=== PATIENT | female | born 1995 | race Caucasian/White ===

== ENCOUNTER → 2020-07-23 | Outpatient (REF) | payer OTHER ==
[2020-07-23 16:58] LABS: BASO # 0.1 10^3/uL (0.0-0.2); BASO % 0.7 % (0.0-1.0); EOS # 0.2 10^3/uL (0.0-0.5); EOS % 2.6 % (0.0-3.0); HEMATOCRIT 41.8 % (36.0-47.0); HEMOGLOBIN 13.7 g/dl (12.0-15.5); LYMPH # 2.4 10^3/uL (1.5-5.0); LYMPH % 33.8 % (24.0-44.0); MEAN CORPUSCULAR HEMOGLOBIN 29.1 pg (27.0-33.0); MEAN CORPUSCULAR HGB CONC 32.8 g/dl (32.0-36.5); MEAN CORPUSCULAR VOLUME 88.9 fl (80.0-96.0); MONO # 0.6 10^3/uL (0.0-0.8); MONO % 8.3 % (0.0-5.0); NEUTROPHILS # 3.9 10^3/uL (1.5-8.5); NEUTROPHILS % 54.3 % (36.0-66.0); PLATELET COUNT, AUTOMATED 315 10^3/uL (150-450); WHITE BLOOD COUNT 7.2 10^3/uL (4.0-10.0)
[2020-07-23 17:06] LABS: APPEARANCE, URINE CLEAR (CLEAR); BACTERIA, URINE AUTO NEGATIVE (NEGATIVE); BILIRUBIN, URINE AUTO NEGATIVE (NEGATIVE); BLOOD, URINE BLOOD 2+ (NEGATIVE); COLOR, URINE STRAW (YELLOW); GLUCOSE, URINE (UA) AUTO NEGATIVE (NEGATIVE); KETONE, URINE AUTO TRACE mg/dL (NEGATIVE); LEUKOCYTE ESTERASE, URINE AUTO NEGATIVE (NEGATIVE); MUCUS, URINE SMALL (NEGATIVE); NITRITE, URINE AUTO NEGATIVE (NEGATIVE); PROTEIN, URINE AUTO NEGATIVE (NEGATIVE); RBC, URINE AUTO 1 /HPF (0-3); SQUAMOUS EPITHELIAL CELL UR AU 0 /HPF (0-6); UROBILINOGEN, URINE AUTO 0.2 mg/dL (0.0-2.0); WBC, URINE AUTO 0 /HPF (0-3)
[2020-07-23 17:19] LABS: CREATININE,RANDOM URINE 60.8 MG/DL; TOTAL PROTEIN,RANDOM URINE < 5.0 MG/DL (0.0-12.0)
[2020-07-23 17:28] LABS: C REACTIVE PROTEIN QUANTITATIV < 0.30 MG/DL (0.00-0.30); COMPLEMENT C3 88 MG/DL (90-180); COMPLEMENT C4 27 MG/DL (10-40); CPK CREATINE PHOSPHOKINASE 150 U/L (26-192); IRON (FE) 50 UG/DL (50-170); MAGNESIUM LEVEL 2.2 MG/DL (1.8-2.4); PHOSPHORUS LEVEL 3.5 MG/DL (2.5-4.9); RHEUMATOID FACTOR QUANT < 10.0 IU/ML (<15.0); THYROID STIMULATING HORMONE 0.541 uIU/ML (0.358-3.740)
[2020-07-23 17:30] LABS: TOTAL 25(OH) VITAMIN D 26.4 NG/ML (30.0-100.0); VITAMIN B12 LEVEL 674 PG/ML (247-911)
[2020-07-23 19:31] LABS: ERYTHROCYTE SEDIMENTATION RATE 7 mm/hr (0-20)
[2020-07-25 10:03] LABS: DRVV SCREEN 40.2 SEC
[2020-07-29 21:06] LABS: ANA (HEP2) Positive (.); ANTI CENTROMERE ANTIBODY <0.2 AI (0.0-0.9); ANTI DS-DNA AB Negative (Negative); ANTI SCLERODERMA ANTIBODIES <0.2 AI (0.0-0.9); ANTI SMITH(Sm) AB <20 Units (<20); ANTI-HISTONE ANTIBODIES 0.7 Units (0.0-0.9); ANTI-U1 RNP AB <20 Units (<20); BETA-2 GLYCOPROTEIN I ABY IGA <9 (0-25); BETA-2 GLYCOPROTEIN I ABY IGG <9 (0-20); BETA-2 GLYCOPROTEIN I ABY IGM <9 (0-32); CARDIOLIPIN IGA ANTIBODY <9 APL U/mL (0-11); CARDIOLIPIN IGG ANTIBODY <9 GPL U/mL (0-14); CARDIOLIPIN IGM ANTIBODY 12 MPL U/mL (0-12); COMPLEMENT TOTAL (CH50) > 60 U/mL (>41); CYCLIC CITRULLINATED PEPTIDE 6 units (0-19); SSA SJOGRENS A <0.2 AI (0.0-0.9); SSB SJOGRENS B <0.2 AI (0.0-0.9)
== END ==
LOC: M SFHCRHEU 14:37
PROVIDERS: ATTEND Internal Medicine
DX: R76.8 Other specified abnormal immunological findings in serum (principal); M79.10 Myalgia, unspecified site; M25.40 Effusion, unspecified joint
CPT/HCPCS: 81001; 82306; 82550; 82570; 82607; 83520; 83540; 83735; 84100; 84156; 84443; 85025; 85652; 85730; 86038; 86140; 86146; 86147; 86160; 86162; 86200; 86225; 86235; 86255; 86431; G0463

== ENCOUNTER → 2020-11-21 | Outpatient (REF) | payer OTHER ==
[2020-11-21 18:12] LABS: C REACTIVE PROTEIN QUANTITATIV 1.04 MG/DL (0.00-0.30)
[2020-11-21 20:12] LABS: TOTAL 25(OH) VITAMIN D 45.1 NG/ML (30.0-100.0)
[2020-11-25 14:17] LABS: ANTI DS-DNA AB Negative (Negative); COMPLEMENT TOTAL (CH50) > 60 U/mL (>41)
== END ==
LOC: M SFHCRHEU 12:53
PROVIDERS: ATTEND Internal Medicine
DX: E55.9 Vitamin D deficiency, unspecified (principal); M32.9 Systemic lupus erythematosus, unspecified
CPT/HCPCS: 82306; 85652; 86140; 86160; 86162; 86225; G0463

== ENCOUNTER 2021-03-26 09:58 | Day surgery (SDC) | payer OTHER ==
[~2021-03-26] VITALS: Ht 152.4 cm; Wt 61.2 kg
[~2021-03-26 09:58] MED LIST: FOLI1TAB11 PO; LR 1,000 ML IV ONE; NAPR-837 PO; PLAQ200T4 PO; VALT500T PO
[2021-03-26 10:54] LABS: HEMATOCRIT 38.9 % (36.0-47.0); HEMOGLOBIN 13.4 g/dl (12.0-15.5); MEAN CORPUSCULAR HEMOGLOBIN 30.7 pg (27.0-33.0); MEAN CORPUSCULAR HGB CONC 34.4 g/dl (32.0-36.5); MEAN CORPUSCULAR VOLUME 89.2 fl (80.0-96.0); PLATELET COUNT, AUTOMATED 269 10^3/uL (150-450); RED BLOOD COUNT 4.36 10^6/uL (4.00-5.40)
[2021-03-26] MEDS ORDERED: MIDAZOLAM INJ 2MG/2ML VIAL (J2250 PER 1MG) As Ordered ONE (11:15)
[2021-03-26] MEDS ORDERED: fentaNYL 100 MCG/2 ML INJECTION (J3010) As Ordered ONE (11:16)
[2021-03-26] MEDS ORDERED: propofoL 200 MG/20 ML VIAL As Ordered ONE (11:17)
[2021-03-26] MEDS ORDERED: ROCURONIUM BROMIDE 50 MG/5 ML VIAL As Ordered ONE (11:17)
[2021-03-26] MEDS ORDERED: LIDOCAINE 2% 100MG/5ML SDV (FOR ANES.) As Ordered ONE (11:17)
[2021-03-26 11:27] LABS: BLOOD UREA NITROGEN 12 MG/DL (7-18); CALCIUM LEVEL 9.5 MG/DL (8.5-10.1); CARBON DIOXIDE LEVEL 28 MEQ/L (21-32); CHLORIDE LEVEL 106 MEQ/L (98-107); CREATININE FOR GFR 0.64 MG/DL (0.55-1.30); GLOMERULAR FILTRATION RATE > 60.0 (>60); GLUCOSE, FASTING 83 MG/DL (70-100); HCG, SERUM QUANTITATIVE < 1.0 MIU/ML; POTASSIUM SERUM 4.2 MEQ/L (3.5-5.1); SODIUM LEVEL 137 MEQ/L (136-145)
[2021-03-26] MEDS ORDERED: HYDROmorphone HCL 2 MG/ML 1ML VIAL As Ordered ONE (11:43)
[2021-03-26] MEDS ORDERED: dexameTHASONE 4 MG/ML 1ML VIAL (J1100 PER 1MG) As Ordered ONE (11:44)
[2021-03-26] MEDS ORDERED: KETOROLAC 60MG 2ML VIAL As Ordered ONE (11:44)
[2021-03-26] MEDS ORDERED: ONDANSETRON 4MG/2ML VIAL As Ordered ONE (11:44)
[2021-03-26] MEDS ORDERED: ACETAMINOPHEN 650 MG SUPP As Ordered ONE (12:27)
[2021-03-26] MEDS ORDERED: BUPIVACAINE HCL 0.5% 10ML VIAL As Ordered ONE (12:27)
[2021-03-26] MEDS ORDERED: PHENYLephrine 500MCG 5ML (100MCG/ML) SYRINGE As Ordered ONE (13:08)
[2021-03-26] MEDS ORDERED: SUGAMMADEX SODIUM 500 MG/5 ML VIAL (BRIDION) As Ordered ONE (13:09)
[2021-03-26] MEDS ORDERED: fentaNYL 100 MCG/2 ML INJECTION (J3010) IV PRN (14:20)
[2021-03-26] MEDS ORDERED: ONDANSETRON 4MG/2ML VIAL IV PRN (14:20)
[2021-03-26] MEDS ORDERED: oxyCODONE 5MG TAB PO PRN (14:20)
[2021-03-26] MEDS ORDERED: LR 1,000 ML IV SCH (14:20)
[2021-03-26 16:00] VITALS: BP 101/59
== END 2021-03-26 16:00 | disposition home or self-care (01) ==
LOC: M SDC 09:58
PROVIDERS: ATTEND Obstetrics & Gynecology
DX: Z30.2 Encounter for sterilization (principal); Z30.46 Encounter for surveillance of implantable subdermal contraceptive; M32.9 Systemic lupus erythematosus, unspecified; R51.9 Headache, unspecified; Z79.899 Other long term (current) drug therapy
CPT/HCPCS: 11982; 36415; 58661; 80048; 84702; 85027; 88300; 88302; J1100; J1170; J1885; J2250; J2370; J2405; J3010

== ENCOUNTER → 2021-04-08 | Outpatient (REF) | payer OTHER ==
[~2021-04-08] MED LIST changes: -LR 1,000 ML IV ONE
[2021-04-08 17:51] LABS: BASO % 0.5 % (0.0-1.0); EOS # 0.2 10^3/uL (0.0-0.5); EOS % 2.7 % (0.0-3.0); HEMATOCRIT 41.2 % (36.0-47.0); HEMOGLOBIN 13.7 g/dl (12.0-15.5); LYMPH # 1.7 10^3/uL (1.5-5.0); LYMPH % 24.9 % (24.0-44.0); MEAN CORPUSCULAR HEMOGLOBIN 30.4 pg (27.0-33.0); MEAN CORPUSCULAR HGB CONC 33.3 g/dl (32.0-36.5); MEAN CORPUSCULAR VOLUME 91.4 fl (80.0-96.0); MONO # 0.5 10^3/uL (0.0-0.8); MONO % 7.1 % (2.0-8.0); NEUTROPHILS # 4.3 10^3/uL (1.5-8.5); NEUTROPHILS % 64.5 % (36.0-66.0); PLATELET COUNT, AUTOMATED 326 10^3/uL (150-450); RED BLOOD COUNT 4.51 10^6/uL (4.00-5.40); WHITE BLOOD COUNT 6.7 10^3/uL (4.0-10.0)
[2021-04-08 18:15] LABS: TOTAL PROTEIN,RANDOM URINE 24.6 MG/DL (0.0-12.0)
[2021-04-08 18:16] LABS: ALBUMIN 4.3 GM/DL (3.2-5.2); ALT/SGPT 28 U/L (12-78); BILIRUBIN,DIRECT < 0.1 MG/DL (0.0-0.2); BILIRUBIN,TOTAL 0.5 MG/DL (0.2-1.0); BLOOD UREA NITROGEN 17 MG/DL (7-18); CALCIUM LEVEL 9.9 MG/DL (8.5-10.1); CARBON DIOXIDE LEVEL 30 MEQ/L (21-32); CHLORIDE LEVEL 105 MEQ/L (98-107); COMPLEMENT C3 105 MG/DL (90-180); COMPLEMENT C4 34 MG/DL (10-40); CREATININE FOR GFR 0.59 MG/DL (0.55-1.30); GLOMERULAR FILTRATION RATE > 60.0 (>60); GLUCOSE, FASTING 78 MG/DL (70-100); POTASSIUM SERUM 4.3 MEQ/L (3.5-5.1); SODIUM LEVEL 138 MEQ/L (136-145); TOTAL PROTEIN 7.4 GM/DL (6.4-8.2)
[2021-04-08 18:20] LABS: APPEARANCE, URINE CLEAR (CLEAR); BACTERIA, URINE AUTO NEGATIVE (NEGATIVE); BILIRUBIN, URINE AUTO NEGATIVE (NEGATIVE); BLOOD, URINE BLOOD NEGATIVE (NEGATIVE); COLOR, URINE YELLOW (YELLOW); GLUCOSE, URINE (UA) AUTO NEGATIVE (NEGATIVE); KETONE, URINE AUTO NEGATIVE (NEGATIVE); LEUKOCYTE ESTERASE, URINE AUTO NEGATIVE (NEGATIVE); MUCUS, URINE SMALL (NEGATIVE); NITRITE, URINE AUTO NEGATIVE (NEGATIVE); PROTEIN, URINE AUTO NEGATIVE (NEGATIVE); RBC, URINE AUTO 0 /HPF (0-3); SPECIFIC GRAVITY URINE AUTO 1.023 (1.002-1.035); SQUAMOUS EPITHELIAL CELL UR AU 1 /HPF (0-6); WBC, URINE AUTO 1 /HPF (0-3)
[2021-04-08 19:04] LABS: ERYTHROCYTE SEDIMENTATION RATE 10 mm/hr (0-20)
[2021-04-11 12:08] LABS: ANTI DS-DNA AB Negative (Negative); COMPLEMENT TOTAL (CH50) > 60 U/mL (>41)
== END ==
LOC: M SFHCRHEU 12:20
PROVIDERS: ATTEND Internal Medicine
DX: M32.9 Systemic lupus erythematosus, unspecified (principal)
CPT/HCPCS: 80048; 80076; 81001; 82570; 84156; 85025; 85652; 86140; 86160; 86162; 86225; G0463

== ENCOUNTER 2021-04-09 11:10 | Emergency (ER) | payer OTHER ==
[~2021-04-09] VITALS: Ht 152.4 cm; Wt 62.1 kg
--- OUTSIDE RECORDS SUMMARY | 2021-04-09 11:17 | CCD ---
Author Author [facility] Organization [facility] Address Unknown Phone Unavailable Care Team Providers Care Wardrobe Coordinator Name Role Phone Antoni MARTINEZ MD Unavailable Unavailable Antoni MARTINEZ MD Unavailable Unavailable Antoni MARTINEZ MD Unavailable Unavailable Antoni MARTINEZ MD Unavailable Unavailable Antoni MARTINEZ MD Unavailable Unavailable Antoni MARTINEZ MD Unavailable Unavailable Antoni MARTINEZ MD Unavailable Unavailable Antoni MARTINEZ MD Unavailable Unavailable Antoni MARTINEZ MD Unavailable Unavailable Antoni MARTINEZ MD Unavailable Unavailable Antoni MARTINEZ MD Unavailable Unavailable Antoni MARTINEZ MD Unavailable Unavailable Antoin MARTINEZ MD Unavailable Unavailable Antoni MARTINEZ MD Unavailable Unavailable Antoni MARTINEZ MD Unavailable Unavailable Antoni MARTINEZ MD Unavailable Unavailable Antoni MARTINEZ MD Unavailable Unavailable Antoni MARTINEZ MD Unavailable Unavailable Antoni MARTINEZ MD Unavailable Unavailable Antoni MARTINEZ MD Unavailable Unavailable Antoni MARTINEZ MD Unavailable Unavailable Antoni MARTINEZ MD Unavailable Unavailable Antoni MARTINEZ MD Unavailable Unavailable Antoni MARTINEZ MD Unavailable Unavailable Kizzy Saab Phyl REJECT OPENER AND FILLER-BC Unavailable Unavailable Kizzy Saab Phyl REJECT OPENER AND FILLER-BC Unavailable Unavailable Saab, A Phyl REJECT OPENER AND FILLER-BC Unavailable Unavailable Saab, A Phyl REJECT OPENER AND FILLER-BC Unavailable Unavailable Saab, A Phyl REJECT OPENER AND FILLER-BC Unavailable Unavailable Saab, A Phyl REJECT OPENER AND FILLER-BC Unavailable Unavailable Saab, A Phyl REJECT OPENER AND FILLER-BC Unavailable Unavailable Saab, A Phyl REJECT OPENER AND FILLER-BC Unavailable Unavailable Saab, A Phyl REJECT OPENER AND FILLER-BC Unavailable Unavailable Saab, A Phyl REJECT OPENER AND FILLER-BC Unavailable Unavailable Saab, A Phyl REJECT OPENER AND FILLER-BC Unavailable Unavailable Saab, A Phyl REJECT OPENER AND FILLER-BC Unavailable Unavailable Saab, A Phyl REJECT OPENER AND FILLER-BC Unavailable Unavailable Saab, A Phyl REJECT OPENER AND FILLER-BC Unavailable Unavailable Saab, A Phyl REJECT OPENER AND FILLER-BC Unavailable Unavailable Saab, A Phyl REJECT OPENER AND FILLER-BC Unavailable Unavailable Saab, A Phyl REJECT OPENER AND FILLER-BC Unavailable Unavailable Saab, A Phyl REJECT OPENER AND FILLER-BC Unavailable Unavailable Saab, A Phyl REJECT OPENER AND FILLER-BC Unavailable Unavailable Saab, A Phyl REJECT OPENER AND FILLER-BC Unavailable Unavailable Saab, A Phyl REJECT OPENER AND FILLER-BC Unavailable Unavailable Saab, A Phyl REJECT OPENER AND FILLER-BC Unavailable Unavailable Saab, A Phyl REJECT OPENER AND FILLER-BC Unavailable Unavailable Saab, A Phyl REJECT OPENER AND FILLER-BC Unavailable Unavailable Saab, A Phyl REJECT OPENER AND FILLER-BC Unavailable Unavailable Saab, A Phyl REJECT OPENER AND FILLER-BC Unavailable Unavailable Saab, A Phyl REJECT OPENER AND FILLER-BC Unavailable Unavailable Saab, A Phyl REJECT OPENER AND FILLER-BC Unavailable Unavailable Saab, A Phyl REJECT OPENER AND FILLER-BC Unavailable Unavailable Saab, A Phyl REJECT OPENER AND FILLER-BC Unavailable Unavailable Saab, A Phyl REJECT OPENER AND FILLER-BC Unavailable Unavailable Saab, A Phyl REJECT OPENER AND FILLER-BC Unavailable Unavailable [facility] Unavailable Unavailable Mosher, M Christopher PA-C Unavailable Unavailable Mosher, M Christopher PA-C Unavailable Unavailable Mosher, M Christopher PA-C Unavailable Unavailable Mosher, M Christopher PA-C Unavailable Unavailable Mosher, M Christopher PA-C Unavailable Unavailable Mosher, M Christopher PA-C Unavailable Unavailable Mosher, M Christopher PA-C Unavailable Unavailable Mosher, M Christopher PA-C Unavailable Unavailable Mosher, M Christopher PA-C Unavailable Unavailable Mosher, M Christopher PA-C Unavailable Unavailable Mosher, M Christopher PA-C Unavailable Unavailable Mosher, M Christopher PA-C Unavailable Unavailable Mosher, M Christopher PA-C Unavailable Unavailable Mosher, M Christopher PA-C Unavailable Unavailable Mosher, M Christopher PA-C Unavailable Unavailable Mosher, M Christopher PA-C Unavailable Unavailable Mosher, M Christopher PA-C Unavailable Unavailable Mosher, M Christopher PA-C Unavailable Unavailable Mosher, M Christopher PA-C Unavailable Unavailable Mosher, M Christopher PA-C Unavailable Unavailable Mosher, M Christopher PA-C Unavailable Unavailable Mosher, M Christopher PA-C Unavailable Unavailable Mosher, M Christopher PA-C Unavailable Unavailable Mosher, M Christopher PA-C Unavailable Unavailable Mosher, M Christopher PA-C Unavailable Unavailable Mosher, M Christopher PA-C Unavailable Unavailable Quinn, L Savita REJECT OPENER AND FILLER Unavailable Unavailable Quinn, L Savita REJECT OPENER AND FILLER Unavailable Unavailable Quinn, L Savita REJECT OPENER AND FILLER Unavailable Unavailable Quinn, L Savita REJECT OPENER AND FILLER Unavailable Unavailable Quinn, L Savita REJECT OPENER AND FILLER Unavailable Unavailable Uqinn, L Savita REJECT OPENER AND FILLER Unavailable Unavailable Quinn, L Savita REJECT OPENER AND FILLER Unavailable Unavailable Quinn, L Savita REJECT OPENER AND FILLER Unavailable Unavailable Quinn, L Savita REJECT OPENER AND FILLER Unavailable Unavailable Quinn, L Savita REJECT OPENER AND FILLER Unavailable Unavailable Quinn, L Savita REJECT OPENER AND FILLER Unavailable Unavailable Quinn, L Savita REJECT OPENER AND FILLER Unavailable Unavailable Quinn, L Savita REJECT OPENER AND FILLER Unavailable Unavailable Quinn, L Savita REJECT OPENER AND FILLER Unavailable Unavailable Quinn, L Savita REJECT OPENER AND FILLER Unavailable Unavailable Quinn, L Savita REJECT OPENER AND FILLER Unavailable Unavailable Quinn, L Savita REJECT OPENER AND FILLER Unavailable Unavailable Quinn, L Svaita REJECT OPENER AND FILLER Unavailable Unavailable Quinn, L Savita REJECT OPENER AND FILLER Unavailable Unavailable Quinn, L Savita REJECT OPENER AND FILLER Unavailable Unavailable Quinn, L Savita REJECT OPENER AND FILLER Unavailable Unavailable Quinn, L Savita REJECT OPENER AND FILLER Unavailable Unavailable Quinn, L Savita REJECT OPENER AND FILLER Unavailable Unavailable Quinn, L Savita REJECT OPENER AND FILLER Unavailable Unavailable Quinn, L Savita REJECT OPENER AND FILLER Unavailable Unavailable Quinn, L Savita REJECT OPENER AND FILLER Unavailable Unavailable Quinn, L Savita REJECT OPENER AND FILLER Unavailable Unavailable Quinn, L Savita REJECT OPENER AND FILLER Unavailable Unavailable Quinn, L Savita REJECT OPENER AND FILLER Unavailable Unavailable Quinn, L Savita REJECT OPENER AND FILLER Unavailable Unavailable Quinn, L Savita REJECT OPENER AND FILLER Unavailable Unavailable Quinn, L Savita REJECT OPENER AND FILLER Unavailable Unavailable Quinn, L Savita REJECT OPENER AND FILLER Unavailable Unavailable Quinn, L Savita REJECT OPENER AND FILLER Unavailable Unavailable Quinn, L Savita REJECT OPENER AND FILLER Unavailable Unavailable Quinn, L Savita REJECT OPENER AND FILLER Unavailable Unavailable Quinn, L Savita REJECT OPENER AND FILLER Unavailable Unavailable Quinn, L Savita REJECT OPENER AND FILLER Unavailable Unavailable Quinn, L Savita REJECT OPENER AND FILLER Unavailable Unavailable Quinn, L Savita REJECT OPENER AND FILLER Unavailable Unavailable Quinn, L Savita REJECT OPENER AND FILLER Unavailable Unavailable Quinn, L Savita REJECT OPENER AND FILLER Unavailable Unavailable Quinn, L Savita REJECT OPENER AND FILLER Unavailable Unavailable Quinn, L Savita REJECT OPENER AND FILLER Unavailable Unavailable Quinn, L Savita REJECT OPENER AND FILLER Unavailable Unavailable Re-disclosure Warning The records that you are about to access may contain information from federally-assisted alcohol or drug abuse programs. If such information is present, then the following federally mandated warning applies: This information has been disclosed to you from records protected by federal confidentiality rules (42 CFR part 2). The federal rules prohibit you from making any further disclosure of this information unless further disclosure is expressly permitted by the written consent of the person to whom it pertains or as otherwise permitted by 42 CFR part 2. A general authorization for the release of medical or other information is NOT sufficient for this purpose. The Federal rules restrict any use of the information to criminally investigate or prosecute any alcohol or drug abuse patient.The records that you are about to access may contain highly sensitive health information, the redisclosure of which is protected by Article 27-F of the [facility] Public Health law. If you continue you may have access to information: Regarding HIV / AIDS; Provided by facilities licensed or operated by the [facility] Office of Mental Health; or Provided by the [facility] Office for People With Developmental Disabilities. If such information is present, then the following [facility] mandated warning applies: This information has been disclosed to you from confidential records which are protected by state law. State law prohibits you from making any further disclosure of this information without the specific written consent of the person to whom it pertains, or as otherwise permitted by law. Any unauthorized further disclosure in violation of state law may result in a fine or half-way sentence or both. A general authorization for the release of medical or other information is NOT sufficient authorization for further disc losure. Encounters Encounter Providers Location Date Indications Data Source(s ) [place] [address] [facility] [facility] [address] 03/21/2021 12:00:00 AM EDT eCW1 ([facility]) [place] [address] [facility] [facility] [address] 03/11/2021 12:00:00 AM EDT eCW1 ([facility]) Outpatient 03/06/2021 04:08:40 PM EDT - 021 04:42:20 PM EDT [facility] ([facility]) [place] [address] [facility] [facility] [facility] [address] 02/10/2021 12:00:00 AM EDT eCW1 [facility]) [place] [address] [facility] [address] 02/10/2021 12:00:00 AM EDT eCW1 ([facility]) [place]patient [address] [facility] [facility] [facility] [address] 11/21/2020 12:00:00 AM EDT [facility]CW1 [facility] Outpatient Attender: Chuy Mosher PA-C 11/18/2020 02:11:59 PM EDT - 11/18/2020 03:35:22 PM EDT [facility] ([facility]) Outpatient Attender: Duarte Saab [facility] Main Office 0 11/12/2020 10:45:00 AM EDT [facility]ENT ([facility]) [place] [address] [facility] [facility] [address] 11/12/2020 12:00:00 AM EDT [facility]CW1 [facility]) Outpatient Attender: Svaita WESTBROOKonsultant: [facility] 11/05/2020 10:03:00 AM EDT - 11/05/2020 11:03:[address] [facility] Outpatient Attender: RENAE MARTINEZ MD 10/11 03:42:42 PM EDT - 10/11/2020 04:59:40 PM EDT [facility] ([facility] ) [place] [address] [facility] [facility] [address] 09/26/2020 12:00:00 AM EDT eCW1 ([facility] [place] [address] [facility] [facility] [address] 09/21/2020 12:00:00 AM EDT eCW1 ([facility]) [place] [address] [facility] [address] 09/20/2020 12:00:00 AM EDT eCW1 ([facility]) [place] [address] [facility] [facility] [address] 08/25/2020 12:00:00 AM EST eCW1 ([facility]) Out[place] [address] [facility] [facility] [address] 08/19/2020 12:00:00 AM EST eCW1 ([facility]) [place] [address] [facility] [facility] [address] 08/01/2020 12:00:00 AM EST eCW1 ([facility]) [place] [address] [facility] [facility] [address] 07/27/2020 12:00:00 AM EST eCW1 ([facility]) [place] [address] [facility] [facility] [facility] [address] 07/23/2020 12:00:00 AM EST eCW1 ([facility]) Medications Medication Brand Name Start Date Product Form Dose Route Admi nistrative Instructions Pharmacy Instructions Status Indications Reaction Description Data Source(s) Naproxen 500 MG Oral Tablet Naproxen 500 MG 11/21/2020 12:00:00 AM EDT 1.0 {tablet_with_food} active Naproxen 500 MG eCW1 ([facility]) Naproxen 500 MG Oral Tablet Naproxen 500 MG 11/21/2020 12:00:00 AM EDT 1.0 {tablet_with_food} active Naproxen 500 MG eCW1 ([facility]) Naproxen 500 MG Oral Tablet Naproxen 500 MG 11/21/2020 12:00:00 AM EDT 1.0 {tablet_with_food} active Naproxen 500 MG eCW1 ([facility]) Naproxen 500 MG Oral Tablet Naproxen 500 MG 11/21/2020 12:00:00 AM EDT 1.0 {tablet_with_food} active Naproxen 500 MG eCW1 ([facility]) Naproxen 500 MG Oral Tablet Naproxen 500 MG 11/21/2020 12:00:00 AM EDT 1.0 {tablet_with_food} active Naproxen 500 MG eCW1 ([facility]) Hydroxychloroquine Sulfate 200 MG Oral Tablet [Plaquen il] Plaquenil 200 MG Plaquenil 200 MG 09/21/2020 12:00:00 AM EDT 1.5 {tablets} active Plaquenil 200 MG eCW1 ([facility]) Hydroxychloroquine Sulfate 200 MG Oral Tablet [Plaquen il] Plaquenil 200 MG Plaquenil 200 MG 09/21/2020 12:00:00 AM EDT 1.5 {tablets} active Plaquenil 200 MG eCW1 ([facility]) Hydroxychloroquine Sulfate 200 MG Oral Tablet [Plaquen il] Plaquenil 200 MG Plaquenil 200 MG 09/21/2020 12:00:00 AM EDT 1.5 {tablets} active Plaquenil 200 MG eCW1 ([facility]) Hydroxychloroquine Sulfate 200 MG Oral Tablet [Plaquen il] Plaquenil 200 MG Plaquenil 200 MG 09/21/2020 12:00:00 AM EDT a ctive Plaquenil 200 MG eCW1 ([facility]) Hydroxychloroquine Sulfate 200 MG Oral Tablet [Plaquen il] Plaquenil 200 MG Plaquenil 200 MG 09/21/2020 12:00:00 AM EDT a ctive Plaquenil 200 MG eCW1 ([facility]) Hydroxychloroquine Sulfate 200 MG Oral Tablet [Plaquen il] Plaquenil 200 MG Plaquenil 200 MG 09/21/2020 12:00:00 AM EDT a ctive Plaquenil 200 MG eCW1 ([facility]) Hydroxychloroquine Sulfate 200 MG Oral Tablet [Plaquen il] Plaquenil 200 MG Plaquenil 200 MG 09/21/2020 12:00:00 AM EDT 1.5 {tablets} active Plaquenil 200 MG eCW1 ([facility]) Hydroxychloroquine Sulfate 200 MG Oral Tablet [Plaquen il] Plaquenil 200 MG Plaquenil 200 MG 09/21/2020 12:00:00 AM EDT 1.5 {tablets} active Plaquenil 200 MG eCW1 ([facility]) Hydroxychloroquine Sulfate 200 MG Oral Tablet [Plaquen il] Plaquenil 200 MG Plaquenil 200 MG 09/21/2020 12:00:00 AM EDT a ctive Plaquenil 200 MG eCW1 ([facility]) D3 Vitamin 1999 UNK 08/19/2020 12:00:00 AM EST 1.0 {tablet} active D3 Vitamin 1999 eCW1 ([facility]) Folic Acid 1 MG Oral Tablet Folic Acid 1 MG 08/19/2020 12:00:00 AM EST 1.0 {tablet} active Folic Acid 1 MG eCW1 ([facility]) Folic Acid 1 MG Oral Tablet Folic Acid 1 MG 08/19/2020 12:00:00 AM EST 1.0 {tablet} active Folic Acid 1 MG eCW1 ([facility]) D3 Vitamin 1999 UNK 08/19/2020 12:00:00 AM EST 1.0 {tablet} active D3 Vitamin 1999 eCW1 ([facility]) Folic Acid 1 MG Oral Tablet Folic Acid 1 MG 08/19/2020 12:00:00 AM EST 1.0 {tablet} active Folic Acid 1 MG eCW1 ([facility]) meloxicam 7.5 MG Oral Tablet Meloxicam 7.5 MG Meloxicam 7.5 MG 08/19/2020 12:00:00 AM EST 1.0 {tablet} active Me loxicam 7.5 MG eCW1 ([facility]) Folic Acid 1 MG Oral Tablet Folic Acid 1 MG 08/19/2020 12:00:00 AM EST 1.0 {tablet} active Folic Acid 1 MG eCW1 ([facility]) meloxicam 7.5 MG Oral Tablet Meloxicam 7.5 MG Meloxicam 7.5 MG 08/19/2020 12:00:00 AM EST 1.0 {tablet} active Me loxicam 7.5 MG eCW1 ([facility]) meloxicam 7.5 MG Oral Tablet Meloxicam 7.5 MG Meloxicam 7.5 MG 08/19/2020 12:00:00 AM EST 1.0 {tablet} active Me loxicam 7.5 MG eCW1 ([facility]) meloxicam 7.5 MG Oral Tablet Meloxicam 7.5 MG Meloxicam 7.5 MG 08/19/2020 12:00:00 AM EST 1.0 {tablet} active Me loxicam 7.5 MG eCW1 ([facility]) Folic Acid 1 MG Oral Tablet Folic Acid 1 MG 08/19/2020 12:00:00 AM EST 1.0 {tablet} active Folic Acid 1 MG eCW1 ([facility]) D3 Vitamin 1999 UNK 08/19/2020 12:00:00 AM EST 1.0 {tablet} active D3 Vitamin 1999 eCW1 ([facility]) D3 Vitamin 1999 UNK 08/19/2020 12:00:00 AM EST 1.0 {tablet} active D3 Vitamin 1999 eCW1 ([facility]) meloxicam 7.5 MG Oral Tablet Meloxicam 7.5 MG Meloxicam 7.5 MG 08/19/2020 12:00:00 AM EST 1.0 {tablet} active Me loxicam 7.5 MG eCW1 ([facility]) meloxicam 7.5 MG Oral Tablet Meloxicam 7.5 MG Meloxicam 7.5 MG 08/19/2020 12:00:00 AM EST 1.0 {tablet} active Me loxicam 7.5 MG eCW1 ([facility]) Folic Acid 1 MG Oral Tablet Folic Acid 1 MG 08/19/2020 12:00:00 AM EST 1.0 {tablet} active Folic Acid 1 MG eCW1 ([facility]) D3 Vitamin 1999 UNK 08/19/2020 12:00:00 AM EST 1.0 {tablet} active D3 Vitamin 1999 eCW1 ([facility]) D3 Vitamin 1999 UNK 08/19/2020 12:00:00 AM EST 1.0 {tablet} active D3 Vitamin 1999 eCW1 ([facility]) meloxicam 7.5 MG Oral Tablet Meloxicam 7.5 MG Meloxicam 7.5 MG 08/19/2020 12:00:00 AM EST 1.0 {tablet} active Me loxicam 7.5 MG eCW1 ([facility]) D3 Vitamin 2000 UNK 08/19/2020 12:00:00 AM EST 1.0 {tablet} active D3 Vitamin 1999 eC1 ([facility]) Folic Acid 1 MG Oral Tablet Folic Acid 1 MG 08/19/2020 12:00:00 AM EST 1.0 {tablet} active Folic Acid 1 MG eCW1 ([facility]) Ergocalciferol 11047 UNT Oral Capsule Vi tamin D (Ergocalciferol) 1.25 MG (25339 UT) Vitamin D (Ergocalciferol) 1.25 MG (03780 UT) 07/27/2020 12:00:0 0 AM EST 1.0 {capsule} active Vitamin D (Ergocal ciferol) 1.25 MG (15472 UT) [facility] ([facility]) Ergocalciferol 94317 UNT Oral Capsule Vi tamin D (Ergocalciferol) 1.25 MG (25156 UT) Vitamin D (Ergocalciferol) 1.25 MG (68093 UT) 07/27/2020 12:00:0 0 AM EST 1.0 {capsule} active Vitamin D (Ergocal ciferol) 1.25 MG (54223 UT) [facility] ([facility]) Ergocalciferol 73636 UNT Oral Capsule Vi tamin D (Ergocalciferol) 1.25 MG (00085 UT) Vitamin D (Ergocalciferol) 1.25 MG (75824 UT) 07/27/2020 12:00:0 0 AM EST 1.0 {capsule} active Vitamin D (Ergocal ciferol) 1.25 MG (80391 UT) [facility] ([facility]) Ergocalciferol 80488 UNT Oral Capsule Vi tamin D (Ergocalciferol) 1.25 MG (59886 UT) Vitamin D (Ergocalciferol) 1.25 MG (51659 UT) 07/27/2020 12:00:0 0 AM EST 1.0 {capsule} active Vitamin D (Ergocal ciferol) 1.25 MG (24344 UT) [facility] ([facility]) Ergocalciferol 76328 UNT Oral Capsule Vi tamin D (Ergocalciferol) 1.25 MG (89475 UT) Vitamin D (Ergocalciferol) 1.25 MG (81691 UT) 07/27/2020 12:00:0 0 AM EST 1.0 {capsule} active Vitamin D (Ergocal ciferol) 1.25 MG (81912 UT) [facility] ([facility]) Ergocalciferol 51407 UNT Oral Capsule Vi tamin D (Ergocalciferol) 1.25 MG (90058 UT) Vitamin D (Ergocalciferol) 1.25 MG (19604 UT) 07/27/2020 12:00:0 0 AM EST 1.0 {capsule} active Vitamin D (Ergocal ciferol) 1.25 MG (38355 UT) [facility] ([facility]) Ergocalciferol 27214 UNT Oral Capsule Vi tamin D (Ergocalciferol) 1.25 MG (80292 UT) Vitamin D (Ergocalciferol) 1.25 MG (61931 UT) 07/27/2020 12:00:0 0 AM EST 1.0 {capsule} active Vitamin D (Ergocal ciferol) 1.25 MG (92559 UT) [facility] ([facility]) Ergocalciferol 56655 UNT Oral Capsule Vi tamin D (Ergocalciferol) 1.25 MG (20360 UT) Vitamin D (Ergocalciferol) 1.25 MG (53242 UT) 07/27/2020 12:00:0 0 AM EST 1.0 {capsule} active Vitamin D (Ergocal ciferol) 1.25 MG (67230 UT) [facility] ([facility]) Ergocalciferol 18817 UNT Oral Capsule Vi tamin D (Ergocalciferol) 1.25 MG (20722 UT) Vitamin D (Ergocalciferol) 1.25 MG (06015 UT) 07/27/2020 12:00:0 0 AM EST 1.0 {capsule} active Vitamin D (Ergocal ciferol) 1.25 MG (11509 UT) [facility] ([facility]) Ergocalciferol 13490 UNT Oral Capsule Vi tamin D (Ergocalciferol) 1.25 MG (67511 UT) Vitamin D (Ergocalciferol) 1.25 MG (66859 UT) 07/27/2020 12:00:0 0 AM EST 1.0 {capsule} active Vitamin D (Ergocal ciferol) 1.25 MG (07560 UT) [facility] ([facility]) Ergocalciferol 60420 UNT Oral Capsule Vi tamin D (Ergocalciferol) 1.25 MG (55100 UT) Vitamin D (Ergocalciferol) 1.25 MG (03688 UT) 07/27/2020 12:00:0 0 AM EST 1.0 {capsule} active Vitamin D (Ergocal ciferol) 1.25 MG (24167 UT) [facility] ([facility]) Ergocalciferol 73207 UNT Oral Capsule Vi tamin D (Ergocalciferol) 1.25 MG (65332 UT) Vitamin D (Ergocalciferol) 1.25 MG (77198 UT) 07/27/2020 12:00:0 0 AM EST 1.0 {capsule} active Vitamin D (Ergocal ciferol) 1.25 MG (88873 UT) [facility] ([facility]) Ergocalciferol 83461 UNT Oral Capsule Vi tamin D (Ergocalciferol) 1.25 MG (83712 UT) Vitamin D (Ergocalciferol) 1.25 MG (57438 UT) 07/27/2020 12:00:0 0 AM EST 1.0 {capsule} active Vitamin D (Ergocal ciferol) 1.25 MG (22726 UT) [facility] ([facility]) Ergocalciferol 45765 UNT Oral Capsule Vi tamin D (Ergocalciferol) 1.25 MG (51762 UT) Vitamin D (Ergocalciferol) 1.25 MG (26220 UT) 07/27/2020 12:00:0 0 AM EST 1.0 {capsule} active Vitamin D (Ergocal ciferol) 1.25 MG (01587 UT) [facility] ([facility]) Ergocalciferol 45692 UNT Oral Capsule Vi tamin D (Ergocalciferol) 1.25 MG (55585 UT) Vitamin D (Ergocalciferol) 1.25 MG (91454 UT) 07/27/2020 12:00:0 0 AM EST 1.0 {capsule} active Vitamin D (Ergocal ciferol) 1.25 MG (43519 UT) [facility] ([facility]) Ergocalciferol 48843 UNT Oral Capsule Vi tamin D (Ergocalciferol) 1.25 MG (81358 UT) Vitamin D (Ergocalciferol) 1.25 MG (14748 UT) 07/27/2020 12:00:0 0 AM EST 1.0 {capsule} active Vitamin D (Ergocal ciferol) 1.25 MG (78077 UT) [facility] ([facility]) Ergocalciferol 21139 UNT Oral Capsule Vi tamin D (Ergocalciferol) 1.25 MG (50836 UT) Vitamin D (Ergocalciferol) 1.25 MG (90430 UT) 07/27/2020 12:00:0 0 AM EST 1.0 {capsule} active Vitamin D (Ergocal ciferol) 1.25 MG (39707 UT) [facility] ([facility]) Ergocalciferol 47256 UNT Oral Capsule Vi tamin D (Ergocalciferol) 1.25 MG (51680 UT) Vitamin D (Ergocalciferol) 1.25 MG (31934 UT) 07/27/2020 12:00:0 0 AM EST 1.0 {capsule} active Vitamin D (Ergocal ciferol) 1.25 MG (57490 UT) [facility] ([facility]) Ergocalciferol 81270 UNT Oral Capsule Vi tamin D (Ergocalciferol) 1.25 MG (37851 UT) Vitamin D (Ergocalciferol) 1.25 MG (16665 UT) 07/27/2020 12:00:0 0 AM EST 1.0 {capsule} active Vitamin D (Ergocal ciferol) 1.25 MG (75394 UT) [facility] ([facility]) Ergocalciferol 19443 UNT Oral Capsule Vi tamin D (Ergocalciferol) 1.25 MG (54247 UT) Vitamin D (Ergocalciferol) 1.25 MG (11832 UT) 07/27/2020 12:00:0 0 AM EST 1.0 {capsule} active Vitamin D (Ergocal ciferol) 1.25 MG (40088 UT) [facility] ([facility]) Ergocalciferol 24046 UNT Oral Capsule Vi tamin D (Ergocalciferol) 1.25 MG (15722 UT) Vitamin D (Ergocalciferol) 1.25 MG (89631 UT) 07/27/2020 12:00:0 0 AM EST 1.0 {capsule} active Vitamin D (Ergocal ciferol) 1.25 MG (67233 UT) [facility] ([facility]) Ergocalciferol 43285 UNT Oral Capsule Vi tamin D (Ergocalciferol) 1.25 MG (87971 UT) Vitamin D (Ergocalciferol) 1.25 MG (36057 UT) 07/27/2020 12:00:0 0 AM EST 1.0 {capsule} active Vitamin D (Ergocal ciferol) 1.25 MG (54684 UT) [facility] ([facility]) Ergocalciferol 36776 UNT Oral Capsule Vi tamin D (Ergocalciferol) 1.25 MG (16398 UT) Vitamin D (Ergocalciferol) 1.25 MG (87364 UT) 07/27/2020 12:00:0 0 AM EST 1.0 {capsule} active Vitamin D (Ergocal ciferol) 1.25 MG (66375 UT) [facility] ([facility]) Insurance Providers Payer name Policy type / Coverage type Policy ID Covered democrat ID Covered democrat's relationship to mon Policy Mon Plan Information / [id number] Spouse [id number] [employer] [id number] SP [id number] [employer] - O/P [id number] Problems, Conditions, and Diagnoses Code Display Name Description Problem Type Effective Dates Data Source(s) 50188620 Carpal tunnel syndrome Carpal tunnel syndrome Problem 09/03/2020 12:00:00 AM EDT ABDI ([facility], ) [id number] Hand pain Hand pain Problem 09/03/2020 12:00:00 AM ED T MEDENT ([facility], ) [id number] Numbness of hand Numbness of hand Problem 09/03/2020 12 :00:00 AM EDT MEDENT ([facility], ) M32.19 [id number] 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, unspecified SLE type Problem 08/19/2020 12:00:00 AM EST eCW1 ([facility]) M32.9 [id number] Systemic lupus eryth ematosus, unspecified SLE type, unspecified organ involvement status Problem 08/19/2020 12:00:00 AM EST eCW1 ([facility]) E55.9 [id number] Vitamin D insufficiency Problem 07/27/2020 1 2:00:00 AM EST eCW1 ([facility]) R20.2 [id number] Paresthesia Problem 07/23/2020 12:00:[address] eCW1 ([facility]) R79.82 [id number] Elevated C-reactive protein (CRP) Prob neil 07/23/2020 12:00:00 AM EST eCW1 ([facility]) Surgeries/Procedures Procedure Description Date Indications Data Source(s) DESTRUCTION BENIGN LESIONS UP TO 14 01/21/2021 12:00:0 0 AM EDT MEDENT ([facility]) DESTRUCTION BENIGN LESIONS UP TO 14 12/24/2020 12:00:0 0 AM EDT MEDENT ([facility]) DESTRUCTION BENIGN LESIONS UP TO 14 11/12/2020 12:00:0 0 AM EDT MEDENT ([facility]) OFFICE OUTPATIENT VISIT 25 MINUTES 11/12/2020 12:00:00 AM EDT MEDENT ([facility]) Needle electromyography, each extremity, with related paraspinal areas, when performed, done with nerve conduction, amplitude and latency/velocity study; complete, five or more muscles studied, innervated by three or more nerves or four or more spinal levels (list separately in addition to the code for primary procedure). 09/03/2020 12:00:00 AM EDT MEDEN T ([facility], ) Needle electromyography, each extremity, with related paraspinal areas, when performed, done with nerve conduction, amplitude and latency/velocity study; complete, five or more muscles studied, innervated by three or more nerves or four or more spinal levels (list separately in addition to the code for primary procedure). 09/03/2020 12:00:00 AM EDT MEDEN T ([facility], ) Needle Electromyography Non Extremity Done With Nerve Conduc tion 09/03/2020 12:00:00 AM EDT MEDENT ([facility]) Needle Electromyography Non Extremity Done With Nerve Conduc tion 09/03/2020 12:00:00 AM EDT MEDENT ([facility]) 16107 Nerve conduction studies 13 or more studies NEW 201209/03/2020 12:00:00 AM EDT MEDENT ([facility] ) Results ID Date Data Source [id number] 03/06/2021 04:30:00 PM EDT JOEL Name Value Range Interpretation Code Description Data Machelle rce(s) Supporting Document(s) SARS-CoV-2 RNA Resp Ql SAROJ+probe NOT DETECTED [facility] This lab was ordered by FAUSTO cornejo and reported by FAUSTO Cervantes. ID Date Data Source [id number] 11/06/2020 09:53:00 [place] [address] PHONE: [phone] FAX: [phone] Name .................. : KELSIE LINDAMARY Acct Number.................. : [id number] ROOM. ................. : MR Number ................... : [id number] Stay type ............. : O/P Discharge Date......... ... : 11/05/20 Admit Date ......... : 11/05/20 Admit Phys .................... : ROCIO Weaver Date of ....... : 1995 Family Phys ................... : UNKNOWN Phone .................. : [phone] Age ................................ : 25 Film# .................. .:[id number] Sex ................................. : F Unsigned transcriptions are preliminary reports and do not represent a medical or legal document MRI BRAIN W/O CONTRAST [id number] COMPLETE:11/05/20 11:21 [facility] [id number] Reason for Exam: NEW ONSET FRONTAL HEADACHES MRI OF THE BRAIN WITHOUT CONTRAST: TECHNIQUE: Multisequence, multiplanar MRI of the brain was obtained without the use of intravenous contrast. COMPARISON: None available. FINDINGS: The subarachnoid spaces and ventricular systems are unremarkable. No areas of abnormal signal alteration is seen. No mass effect or midline shift is present. Posterior fossa structures are unremarkable. Orbital contents are unremarkable. Visualized paranasal sinuses are well aerated. IMPRESSION: Unremarkable MRI brain. Electronically Reviewed and Signed By Tin Rebolledo MD , 11/06/20 09:53, [facility] Transcribe Initials: JUNITO , Transcribe Date: 11/06/20 04:28, Dictation Date: Copy for: ROCIO JHAVERI Copy for: 710 MED REC Page 1 of 1 Name Value Range Interpretation Code Description Data Machelle rce(s) Supporting Document(s) ID Date Data Source [id number] 10/15/2020 04:51:00 PM EDT [facility] Name Value Range Interpretation Code Description Data Machelle rce(s) Supporting Document(s) COVID-19 RT-PCR NASAL SWAB Not Detected Not Detected [facility] A not detected (negative) test result fo r this test means that SARS-CoV-2 RNA was not present in the specimen above the limit ofdetection. Laboratory test results should always be considered in thecontext of clinical observations and epidemiological data in making afinal diagnosis and patient management decisions. Results will bereported to government agencies as required.This test has received Emergency Use Authorization (EUA). We will continue to follow federal and state requirements for COVID-19 reporting. This test has been authorized only for the detection of RNAfrom SARS-CoV-2 virus and diagnosis of SARS-CoV-2 virus infection, notfor any other viruses or pathogens. This test is only authorized for the duration of the declaration that circumstances exist justifying the authorization of the emergency use of in vitro diagnostic tests for detection of SARS-CoV-2 virus and/or diagnosis of SARS-CoV-2 virusinfection under section 564(b)(1) of the Act, 21 U.S.C. section 360bbb-3(b)(1), unless the authorization is terminated or revoked sooner. We will continue to follow federal and state requirements for both notification of results and any confirmatory testing that is required by another agency. This test was developed and its performance characteristics determined by [employer] and verified at [facility]. It has not been cleared or approved by the U.S. Food and Drug Administration for diagnostic use. This test has been authorized by FDA under an EUA for use by authorized laboratories. Results should be used in conjunction with clinical findings, and should not form the sole basis for a diagnosis or treatment decision. Methods: SARS-CoV-2 Multiplex RT-PCR Assay ID Date Data Source [id number] 10/11/2020 04:00:00 PM EDT [facility] Name Value Range Interpretation Code Description Data Machelle rce(s) Supporting Document(s) SARS-CoV-2 (COVID-19) N gene [Presence] in Respiratory specimen by SAROJ with probe detection NEGATIVE [facility] and reported by [facility]. ID Date Data Source [id number] 10/11/2020 12:00:00 AM EDT [facility] Name Value Range Interpretation Code Description Data Machelle rce(s) Supporting Document(s) Carestart Rapid COVID Antigen Test Negative [facility] was reported by [facility]. ID Date Data Source Anti-U1 DIGITAL MARKETING LEAD AB 07/23/2020 12:00:00 AM EST eCW1 ([facility]) Name Value Range Interpretation Code Description Data Machelle rce(s) Supporting Document(s) <20 <20 eCW1 ([facility]) ID Date Data Source Anti [place](Sm) AB 07/23/2020 12:00:00 AM EST eCW1 ([facility]) Name Value Range Interpretation Code Description Data Machelle rce(s) Supporting Document(s) <20 <20 eCW1 ([facility]) ID Date Data Source ABDULAZIZ TITER & PATTERN 07/23/2020 12:00:00 AM EST eCW1 ([facility]) Name Value Range Interpretation Code Description Data Machelle rce(s) Supporting Document(s) Positive . eCW1 ([facility]) ID Date Data Source CYCLIC CITRULLINATED PEPTIDE 07/23/2020 12:00:00 AM EST eCW1 ([facility]) Name Value Range Interpretation Code Description Data Machelle rce(s) Supporting Document(s) 6 0-19 eCW1 ([facility]) ID Date Data Source ANTI SCLERODERMA ANTIBODIES 07/23/2020 12:00:00 AM EST eCW1 ([facility]) Name Value Range Interpretation Code Description Data Machelle rce(s) Supporting Document(s) <0.2 0.0-0.9 eCW1 ([facility]) ID Date Data Source ANTI DOUBLE STRAND DNA MADDIE 07/23/2020 12:00:00 AM EST eCW1 ( [facility]) Name Value Range Interpretation Code Description Data Machelle rce(s) Supporting Document(s) eCW1 ([facility]) ID Date Data Source ANTI-SJOGRENS A&B ANTIBODIES 07/23/2020 12:00:00 AM EST eCW1 ([facility]) Name Value Range Interpretation Code Description Data Machelle rce(s) Supporting Document(s) <0.2 0.0-0.9 eCW1 ([facility]) <0.2 0.0-0.9 eCW1 ([facility]) ID Date Data Source ANTI-HISTONE ANTIBODIES 07/23/2020 12:00:00 AM EST eCW1 ([facility]) Name Value Range Interpretation Code Description Data Machelle rce(s) Supporting Document(s) 0.7 0.0-0.9 eCW1 ([facility]) ID Date Data Source ANTI-CARDIOLIPIN ANTIBODIES 07/23/2020 12:00:00 AM EST eCW1 ([facility]) Name Value Range Interpretation Code Description Data Machelle rce(s) Supporting Document(s) <9 0-14 eCW1 ([facility]) <9 0-11 eCW1 ([facility]) 12 0-12 eCW1 ([facility]) ID Date Data Source ANTI CENTROMERE ANTIBODY 07/23/2020 12:00:00 AM EST eCW1 ([facility]) Name Value Range Interpretation Code Description Data Machelle rce(s) Supporting Document(s) <0.2 0.0-0.9 eCW1 ([facility]) ID Date Data Source COMPLEMENT TOTAL (CH50) 07/23/2020 12:00:00 AM EST eCW1 ([facility]) Name Value Range Interpretation Code Description Data Machelle rce(s) Supporting Document(s) > 60 >41 eCW1 ([facility]) ID Date Data Source BETA-2 GLYCOPROTEIN 1 MADDIE ROHITH 07/23/2020 12:00:00 AM EST eCW 1 ([facility]) Name Value Range Interpretation Code Description Data Machelle rce(s) Supporting Document(s) <9 0-25 eCW1 ([facility]) <9 0-20 eCW1 ([facility]) <9 0-32 eCW1 ([facility]) ID Date Data Source VITAMIN D 25-HYDROXY 07/23/2020 12:00:00 AM EST eCW1 ([facility]) Name Value Range Interpretation Code Description Data Machelle rce(s) Supporting Document(s) 26.4 30.0-100.0 eCW1 ([facility]) ID Date Data Source VITAMIN B12 LEVEL 07/23/2020 12:00:00 AM EST eCW1 ([facility]) Name Value Range Interpretation Code Description Data Machelle rce(s) Supporting Document(s) 677 511-363 eCW1 ([facility]) ID Date Data Source PHOSPHOROUS LEVEL 07/23/2020 12:00:00 AM EST eCW1 ([facility]) Name Value Range Interpretation Code Description Data Machelle rce(s) Supporting Document(s) 3.5 2.5-4.9 eCW1 ([facility]) ID Date Data Source TSH 07/23/2020 12:00:00 AM EST eCW1 ([facility]) Name Value Range Interpretation Code Description Data Machelle rce(s) Supporting Document(s) 0.541 0.358-3.740 eCW1 ([facility]) ID Date Data Source RHEUMATOID FACTOR QUANT 07/23/2020 12:00:00 AM EST eCW1 ([facility]) Name Value Range Interpretation Code Description Data Machelle rce(s) Supporting Document(s) < 10.0 <15.0 eCW1 ([facility]) ID Date Data Source TOTAL PROTEIN,RANDOM URINE 07/23/2020 12:00:00 AM EST eCW1 ( [facility]) Name Value Range Interpretation Code Description Data Machelle rce(s) Supporting Document(s) < 5.0 0.0-12.0 eCW1 ([facility]) ID Date Data Source CREATININE,RANDOM URINE 07/23/2020 12:00:00 AM EST eCW1 ([facility]) Name Value Range Interpretation Code Description Data Machelle rce(s) Supporting Document(s) 60.8 eCW1 ([facility]) ID Date Data Source UA URINALYSIS 07/23/2020 12:00:00 AM EST eCW1 ([facility]) Name Value Range Interpretation Code Description Data Machelle rce(s) Supporting Document(s) eCW1 ([facility]) ID Date Data Source MAGNESIUM LEVEL 07/23/2020 12:00:00 AM EST eCW1 ([facility]) Name Value Range Interpretation Code Description Data Machelle rce(s) Supporting Document(s) 2.2 1.8-2.4 eCW1 ([facility]) ID Date Data Source IRON (FE) 07/23/2020 12:00:00 AM EST eCW1 ([facility]) Name Value Range Interpretation Code Description Data Machelle rce(s) Supporting Document(s) 50 50-170 eCW1 ([facility]) ID Date Data Source CPK CREATINE PHOSPHOKINASE 07/23/2020 12:00:00 AM EST eCW1 ( [facility]) Name Value Range Interpretation Code Description Data Machelle rce(s) Supporting Document(s) 150 26-192 eCW1 ([facility]) ID Date Data Source ERYTHROCYTE SEDIMENTATION RATE 07/23/2020 12:00:00 AM EST eC W1 ([facility]) Name Value Range Interpretation Code Description Data Machelle rce(s) Supporting Document(s) 7 0-20 eCW1 ([facility]) ID Date Data Source C REACTIVE PROTEIN QUANTITATIV (At [facility]) 07/23/2020 12:00 :00 AM EST eCW1 ([facility]) Name Value Range Interpretation Code Description Data Machelle rce(s) Supporting Document(s) < 0.30 0.00-0.30 eCW1 ([facility]) ID Date Data Source LUPUS TYPE ANTICOAGULANT SCREE 07/23/2020 12:00:00 AM EST eC W1 ([facility]) Name Value Range Interpretation Code Description Data Machelle rce(s) Supporting Document(s) 1.0 0-1.2 eCW1 ([facility]) ID Date Data Source CBC with Differential 07/23/2020 12:00:00 AM EST eCW1 ([facility]) Name Value Range Interpretation Code Description Data Machelle rce(s) Supporting Document(s) 41.8 36.0-47.0 eCW1 [facility]) 13.7 12.0-15.5 eCW1 ([facility]) 4.70 4.00-5.40 eCW1 ([facility]) 7.2 4.0-10.0 eCW1 ([facility]) 88.9 80.0-96.0 eCW1 ([facility]) 32.8 32.0-36.5 eCW1 ([facility]) 11.9 11.5-14.5 eCW1 ([facility]) 29.1 27.0-33.0 eCW1 ([facility]) 315 150-450 eCW1 ([facility]) 8.3 0.0-5.0 eCW1 ([facility]) 33.8 24.0-44.0 eCW1 ([facility]) 54.3 36.0-66.0 eCW1 ([facility]) 2.4 1.5-5.0 eCW1 ([facility]) 3.9 1.5-8.5 eCW1 ([facility]) 0.7 0.0-1.0 eCW1 ([facility]) 2.6 0.0-3.0 eCW1 ([facility]) 0.2 0.0-0.5 eCW1 ([facility]) 0.6 0.0-0.8 eCW1 ([facility]) 0.1 0.0-0.2 eCW1 ([facility]) ID Date Data Source COMPLEMENT C4 07/23/2020 12:00:00 AM EST eCW1 ([facility]) Name Value Range Interpretation Code Description Data Machelle rce(s) Supporting Document(s) 27 10-40 eCW1 ([facility]) ID Date Data Source COMPLEMENT C3 07/23/2020 12:00:00 AM EST eCW1 ([facility]) Name Value Range Interpretation Code Description Data Machelle rce(s) Supporting Document(s) 67 87-962 eCW1 ([facility]) ID Date Data Source [id number] 05/23/2020 12:00:00 AM EST [facility] Name Value Range Interpretation Code Description Data Machelle rce(s) Supporting Document(s) SARS coronavirus 2 RNA [Presence] in Res piratory specimen by SAROJ with probe detection [facility] This lab was ordered by Billy Shell and reported by [facility]. Procedure Social History Code Duration Value Status Description Data Source(s ) Smoking 11/21/2020 12:00:00 AM EDT Never Smoker completed Never S moker eCW1 ([facility]) Smoking 11/21/2020 12:00:00 AM EDT Never Smoker completed Never S moker eCW1 ([facility]) Smoking 11/21/2020 12:00:00 AM EDT Never Smoker completed Never S moker eCW1 ([facility]) Smoking 11/21/2020 12:00:00 AM EDT Never Smoker completed Never S moker eCW1 ([facility]) Smoking 11/21/2020 12:00:00 AM EDT Never Smoker completed Never S moker eCW1 ([facility]) Smoking 08/19/2020 12:00:00 AM EST Never Smoker completed Never S moker eCW1 ([facility]) Smoking 08/19/2020 12:00:00 AM EST Never Smoker completed Never S moker eCW1 ([facility]) Smoking 08/19/2020 12:00:00 AM EST Never Smoker completed Never S moker eCW1 ([facility]) Smoking 08/19/2020 12:00:00 AM EST Never Smoker completed Never S moker eCW1 ([facility]) Smoking 08/19/2020 12:00:00 AM EST Never Smoker completed Never S moker eCW1 ([facility]) Smoking 08/19/2020 12:00:00 AM EST Never Smoker completed Never S moker eCW1 ([facility]) Smoking 08/19/2020 12:00:00 AM EST Never Smoker completed Never S moker eCW1 ([facility]) Smoking 07/23/2020 12:00:00 AM EST Never Smoker completed Never S moker eCW1 ([facility]) Smoking 07/23/2020 12:00:00 AM EST Never Smoker completed Never S moker eCW1 ([facility]) Vital Signs ID Date Data Source UNK Name Value Range Interpretation Code Description Data Source(s) Systolic blood pressure 124 mm[Hg] 124 mm[Hg] M EDENT ([facility] Diastolic blood pressure 70 mm[Hg] 70 mm[Hg] MEDENT ([facility]) Body weight 136.00 [lb_av] 136.00 [lb_av] MEDEN T ([facility]) Respiratory rate 18 /min 18 /min MEDENT ( [facility]) Body weight 136.00 [lb_av] 136.00 [lb_av] MEDEN T ([facility]) Respiratory rate 18 /min 18 /min MEDENT ( [facility]) Body weight 142.6 [lb_av] 142.6 [lb_av] eCW1 ([facility]) Body weight 64.7 kg 64.7 kg eCW1 ([facility]) Body height 60 [in_i] 60 [in_i] eCW1 ([facility]) Body mass index (BMI) [Ratio] 27.85 kg/m2 27.85 kg/m2 eCW1 ([facility]) Heart rate 85 /min 85 /min eCW1 ([facility]) Respiratory rate 18 /min 18 /min eCW1 ([facility]) Body temperature 98.4 [degF] 98.4 [degF] eCW1 ( [facility]) Systolic blood pressure 106 mm[Hg] 106 mm[Hg] e CW1 ([facility]) Diastolic blood pressure 66 mm[Hg] 66 mm[Hg] eCW1 ([facility]) Systolic blood pressure 122 mm[Hg] 122 mm[Hg] M EDENT ([facility]) Diastolic blood pressure 66 mm[Hg] 66 mm[Hg] MEDENT ([facility]) Body weight 140.00 [lb_av] 140.00 [lb_av] MEDEN T ([facility]) Respiratory rate 18 /min 18 /min MEDENT ( [facility]) Systolic blood pressure 120 mm[Hg] 120 mm[Hg] M EDENT ([facility], ) Diastolic blood pressure 80 mm[Hg] 80 mm[Hg] MEDENT ([facility], ) Heart rate 72 /min 72 /min MEDENT ([facility], ) Body height 60 [in_i] 60 [in_i] MEDENT ([facility], ) 5'0" Body weight 140.00 [lb_av] 140.00 [lb_av] MEDEN T ([facility], ) [place] body weight 100 [lb_av] 100 [lb_av] MEDEN T ([facility], ) Body mass index (BMI) [Ratio] 27.3 kg/m2 27.3 k g/m2 MEDENT ([facility], ) Body weight 139.8 [lb_av] 139.8 [lb_av] eCW1 ([facility]) Body weight 63.4 kg 63.4 kg eCW1 ([facility]) Body height 60 [in_i] 60 [in_i] eCW1 ([facility]) Body mass index (BMI) [Ratio] 27.30 kg/m2 27.30 kg/m2 eCW1 ([facility]) Heart rate 85 /min 85 /min eCW1 ([facility]) Respiratory rate 18 /min 18 /min eCW1 ([facility]) Body temperature 97.8 [degF] 97.8 [degF] eCW1 ( [facility]) Systolic blood pressure 108 mm[Hg] 108 mm[Hg] e CW1 ([facility]) Diastolic blood pressure 68 mm[Hg] 68 mm[Hg] eCW1 ([facility]) Body weight 143 [lb_av] 143 [lb_av] eCW1 ([facility]) Body weight 64.8 kg 64.8 kg eCW1 ([facility]) Body height 60 [in_i] 60 [in_i] eCW1 ([facility]) Body mass index (BMI) [Ratio] 27.92 kg/m2 27.92 kg/m2 eCW1 ([facility]) Heart rate 103 /min 103 /min eCW1 ([facility]) Body temperature 98.1 [degF] 98.1 [degF] eCW1 ( [facility]) Systolic blood pressure 100 mm[Hg] 100 mm[Hg] e CW1 ([facility]) Diastolic blood pressure 62 mm[Hg] 62 mm[Hg] eCW1 ([facility]) Patient Treatment Plan of Care Planned Activity Planned Date Details Description Data Source (s) Naproxen 500 MG Oral Tablet 11/21/2020 12:00:00 AM EDT eCW1 ([facility]) Naproxen 500 MG Oral Tablet 11/21/2020 12:00:00 AM EDT eCW1 ([facility]) Naproxen 500 MG Oral Tablet 11/21/2020 12:00:00 AM EDT eCW1 ([facility]) Naproxen 500 MG Oral Tablet 11/21/2020 12:00:00 AM EDT eCW1 ([facility]) Naproxen 500 MG Oral Tablet 11/21/2020 12:00:00 AM EDT eCW1 ([facility]) Hydroxychloroquine Sulfate 200 MG Oral Tablet [[place]] 09/21/2020 12:00:00 AM EDT eCW1 ([facility]) Hydroxychloroquine Sulfate 200 MG Oral Tablet [[place]] 09/21/2020 12:00:00 AM EDT [facility]CW1 ([facility] [facility] Hydroxychloroquine Sulfate 200 MG Oral Tablet [[place]] 09/21/2020 12:00:00 AM EDT eCW1 ([facility]) Hydroxychloroquine Sulfate 200 MG Oral Tablet [[place]] 09/21/2020 12:00:00 AM EDT eCW1 ([facility]) Hydroxychloroquine Sulfate 200 MG Oral Tablet [[place]] 09/21/2020 12:00:00 AM EDT eCW1 ([facility]) Hydroxychloroquine Sulfate 200 MG Oral Tablet [[place]] 09/21/2020 12:00:00 AM EDT eCW1 ([facility]) Hydroxychloroquine Sulfate 200 MG Oral Tablet [[place]] 09/21/2020 12:00:00 AM EDT eCW1 ([facility]) Hydroxychloroquine Sulfate 200 MG Oral Tablet [[place]] 09/21/2020 12:00:00 AM EDT eCW1 ([facility]) Hydroxychloroquine Sulfate 200 MG Oral Tablet [[place]] 09/21/2020 12:00:00 AM EDT eCW1 ([facility]) D3 Vitamin 199908/19/2020 12:00:00 AM EST eCW1 ([facility]) meloxicam 7.5 MG Oral Tablet 08/19/2020 12:00:00 AM EST eCW1 ([facility]) Folic Acid 1 MG Oral Tablet 08/19/2020 12:00:00 AM EST eCW1 ([facility]) D3 Vitamin 199908/19/2020 12:00:00 AM EST eCW1 ([facility]) meloxicam 7.5 MG Oral Tablet 08/19/2020 12:00:00 AM EST eCW1 ([facility]) Folic Acid 1 MG Oral Tablet 08/19/2020 12:00:00 AM EST eCW1 ([facility]) D3 Vitamin 199908/19/2020 12:00:00 AM EST eCW1 ([facility]) meloxicam 7.5 MG Oral Tablet 08/19/2020 12:00:00 AM EST eCW1 ([facility]) Folic Acid 1 MG Oral Tablet 08/19/2020 12:00:00 AM EST eCW1 ([facility]) D3 Vitamin 199908/19/2020 12:00:00 AM EST eCW1 ([facility]) meloxicam 7.5 MG Oral Tablet 08/19/2020 12:00:00 AM EST eCW1 ([facility]) Folic Acid 1 MG Oral Tablet 08/19/2020 12:00:00 AM EST eCW1 ([facility]) meloxicam 7.5 MG Oral Tablet 08/19/2020 12:00:00 AM EST eCW1 ([facility]) D3 Vitamin 199908/19/2020 12:00:00 AM EST eCW1 ([facility]) Folic Acid 1 MG Oral Tablet 08/19/2020 12:00:00 AM EST eCW1 ([facility]) meloxicam 7.5 MG Oral Tablet 08/19/2020 12:00:00 AM EST eCW1 ([facility]) D3 Vitamin 199908/19/2020 12:00:00 AM EST eCW1 ([facility]) Folic Acid 1 MG Oral Tablet 08/19/2020 12:00:00 AM EST eCW1 ([facility]) meloxicam 7.5 MG Oral Tablet 08/19/2020 12:00:00 AM EST eCW1 ([facility]) D3 Vitamin 199908/19/2020 12:00:00 AM EST eCW1 ([facility]) Folic Acid 1 MG Oral Tablet 08/19/2020 12:00:00 AM EST eCW1 ([facility]) Ergocalciferol 29724 UNT Oral Capsule 07/27/2020 12:00:00 AM EST eCW1 ([facility]) Ergocalciferol 64319 UNT Oral Capsule 07/27/2020 12:00:00 AM EST eCW1 ([facility]) Ergocalciferol 48291 UNT Oral Capsule 07/27/2020 12:00:00 AM EST eCW1 ([facility]) Ergocalciferol 77054 UNT Oral Capsule 07/27/2020 12:00:00 AM EST eCW1 ([facility])
--- OUTSIDE RECORDS SUMMARY | 2021-04-09 11:17 | CCD ---
Author Author 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 Role Phone Alycia Diaz Unavailable PROBLEMS Type Condition ICD9-CM Code [id number] Code Onset Dates Condition S tatus W/U Status Risk SNOMED Code Notes Problem Systemic lupus erythematosus , unspecified SLE type, unspecified organ involvement status M32.9 Active confirmed 94802143 Problem Vitamin D insufficiency E55.9 Active confirmed 16074549 Problem Elevated C-reactive protein (CRP) R79.82 Active confirmed 571665173646076 Problem Paresthesia R20.2 Active confirmed 45418008 Problem Systemic lupus erythematosus with other organ involvement, unspecified SLE type M32.19 Active confirmed [id number] ALLERGIES No Known Allergies ENCOUNTERS from 1993 to 2021-02-11 Encounter Location Date Provider Diagnosis [facility] Rheumatology [address] [place] [address] [place] [address] Jan, Alycia Diaz IMMUNIZATIONS No Information SOCIAL HISTORY Tobacco Use: Social History Observation Description Date Details (start date - stop date) Never Smoker Sex Assigned At : Social History Observation Description Sex Assigned At Unknown Sexual Hx: Question Answer Notes Had sex in the last 12 months (vaginal, oral, or anal)? Yes Have you ever had an STD? No Prevention Strategies discussed: Other with Men only Use protection? No Alcohol Screening: Question Answer Notes Did you have a drink containing alcohol in the past year? Ye s Points 1 Interpretation Negative How often did you have six or more drinks on one occas ion in the past year? Never (0 points) How many drinks did you have on a typica l day when you were drinking in the past year? 1 or 2 (0 points) How often did you have a drink containing alcohol in t he past year? Monthly or less (1 point) Tobacco Use: Question Answer Notes Are you a: never smoker REASON FOR REFERRAL No Information VITAL SIGNS No information MEDICATIONS Medication SIG (Take, Route, Frequency, Duration) Notes Start Da te End Date Status Naproxen 500 MG 1 tablet with food Oral Twice a day for 30 days Nov, Active Valtrex 500 MG 1 tablet Orally Once a day Active Vitamin D (Ergocalciferol) 1.25 MG (15157 UT) 1 capsul e Orally Weekly for 30 day(s) Jul, Active Folic Acid 1 MG 1 tablet Orally Once a day for 30 day(s) Active Plaquenil 200 MG 1.5 tablets Orally daily for 30 days 2020 Active D3 Vitamin 2000 1 tablet orally daily for 30 days Active Nexplanon 68 MG as directed Subcutaneous as directed Unknown PROCEDURES No Information RESULTS No Results REASON FOR VISIT Reschedule appointment MEDICAL (GENERAL) HISTORY Type Description Date Medical History Arthritis Surgical History C-Seaction 12/15/2014 Hospitalization History 12/15/2014 Goals Section No Information Health Concerns No Information MEDICAL EQUIPMENT No Information MENTAL STATUS No Information FUNCTIONAL STATUS No Information ASSESSMENTS No Information PLAN OF TREATMENT Medication Medication Name Sig Start Date Stop Date Naproxen 500 MG 1 tablet with food Oral Twice a day for 30 days Nov, Plaquenil 200 MG 1.5 tablets Orally daily for 30 days Sep, 20 21 D3 Vitamin 2000 1 tablet orally daily for 30 days Folic Acid 1 MG 1 tablet Orally Once a day for 30 day(s) Next Appt Details Provider Name:Alycia Diaz, 2021-04-08 11:15:00 AM, [address] [place] [address], , [place], [place], [facility], Insurance Providers Payer Name Payer Address Payer Phone Insured Name Patient Relati onship to Insured Coverage Start Date Coverage End Date [facility] [employer] [address] [place] [id number] JYOTI CHEN self
--- OUTSIDE RECORDS SUMMARY | 2021-04-09 11:17 | CCD ---
Author Author [facility] Organization [facility] Address Unknown Phone Unavailable Care Team Providers Care Acid Condenser Name Role Phone Alycia Diaz PROBLEMS Type Condition ICD9-CM Code [id number] Code Onset Dates Condition S tatus W/U Status Risk SNOMED Code Notes Problem Systemic lupus erythematosus , unspecified SLE type, unspecified organ involvement status M32.9 Active confirmed 08018019 Problem Vitamin D insufficiency E55.9 Active confirmed 43698892 Problem Elevated C-reactive protein (CRP) R79.82 Active confirmed [id number] Problem Paresthesia R20.2 Active confirmed 88142476 Problem Systemic lupus erythematosus with other organ involvement, unspecified SLE type M32.19 Active confirmed 55777304 ALLERGIES No Known Allergies ENCOUNTERS from 1993 to 2021-03-13 Encounter Location Date Provider Diagnosis [facility] Rheumatology [address] [place] [address] [place] [address] Feb, Alycia Diaz Systemic lupus erythematosus , unspecified SLE type, unspecified organ involvement status M32.9 IMMUNIZATIONS No Information SOCIAL HISTORY Tobacco Use: [...] day Active Vitamin D (Ergocalciferol) 1.25 MG (32792 UT) 1 capsul e Orally Weekly for [...] Information RESULTS No Results REASON FOR VISIT Medication Refill Request: Plaquenil, Naproxen MEDICAL (GENERAL) HISTORY Type Description Date Medical History Arthritis Surgical History C-Seaction 12/15/2014 Hospitalization History 12/15/2014 Goals Section No Information Health Concerns No Information MEDICAL EQUIPMENT No Information MENTAL STATUS No Information FUNCTIONAL STATUS No Information ASSESSMENTS Encounter Date Diagnosis Assessment Notes Treatment Notes Treatm ent Clinical Notes Feb, Systemic lupus erythematosus , unspecified SLE type, unspecified organ involvement status (ICD-10 - M32.9) PLAN OF TREATMENT Medication Medication Name Sig Start Date Stop Date Naproxen 500 MG 1 tablet with food Oral Twice a day for 30 days Nov, Plaquenil 200 MG 1.5 tablets Orally daily for 30 days Sep, D3 Vitamin 2000 1 tablet orally daily for 30 days Folic Acid 1 MG 1 tablet Orally Once a day for 30 day(s) Next Appt Details Provider Name:Alycia Diaz, 2021-04-08 11:15:00 AM, [address] [place] [address], , [place], [place], [facility], Insurance Providers Payer Name Payer Address Payer Phone Insured Name Patient Relati onship to Insured Coverage Start Date Coverage End Date [facility] [address] [place] [facility] [id number] JYOTI CHEN self
--- OUTSIDE RECORDS SUMMARY | 2021-04-09 11:17 | CCD ---
Author Author [facility] Organization [facility] Address Unknown Phone Unavailable Care Team Providers Care Color Adviser Name Role Phone Alycia Diaz Unavailable PROBLEMS Type Condition ICD9-CM Code [id number] Code Onset Dates Condition S tatus W/U Status Risk SNOMED Code Notes Problem Systemic lupus erythematosus , unspecified SLE type, unspecified organ involvement status M32.9 Active confirmed 75741109 Problem Vitamin D insufficiency E55.9 Active confirmed 69311681 Problem Elevated C-reactive protein (CRP) R79.82 Active confirmed [id number] Problem Paresthesia R20.2 Active confirmed 23277475 Problem Systemic lupus erythematosus with other organ involvement, unspecified SLE type M32.19 Active confirmed 88680178 ALLERGIES No Known Allergies ENCOUNTERS from 1993 to 2021-02-11 Encounter Location Date Provider Diagnosis [facility] Rheumatology [address] [place] [address] [place] [address] Jan, Alycia Diaz IMMUNIZATIONS No Information SOCIAL [...] day Active Vitamin D (Ergocalciferol) 1.25 MG (36325 UT) 1 capsul e Orally Weekly for [...] Information RESULTS No Results REASON FOR VISIT Appointment MEDICAL (GENERAL) HISTORY Type Description Date Medical [...] Details Provider Name:Alycia Diaz, 2021-04-08 11:15:00 AM, [address] [place] [address], , [place], [place], [facility], Insurance Providers Payer Name Payer Address Payer Phone Insured Name Patient Relati onship to Insured Coverage Start Date Coverage End Date [facility] [employer] [address] [place] [id number] JYOTI CHEN self
--- OUTSIDE RECORDS SUMMARY | 2021-04-09 11:17 | CCD ---
Author Author [facility] Organization [facility] Address Unknown Phone Unavailable Care Team Providers Care Professional Engineer Name Role Phone Alycia Diaz Unavailable PROBLEMS Type Condition ICD9-CM Code [id number] Code Onset Dates Condition S tatus W/U Status Risk SNOMED Code Notes Problem Systemic lupus erythematosus , unspecified SLE type, unspecified organ involvement status M32.9 Active confirmed 36177168 Problem Vitamin D insufficiency E55.9 Active confirmed 67979517 Problem Elevated C-reactive protein (CRP) R79.82 Active confirmed 117756281581281 Problem Paresthesia R20.2 Active confirmed 38643924 Problem Systemic lupus erythematosus with other organ involvement, unspecified SLE type M32.19 Active confirmed 51060686 ALLERGIES No Known Allergies ENCOUNTERS from 1993 to 2021-03-21 Encounter Location Date Provider Diagnosis [facility] Rheumatology [address] [place] [address] [place] [address] Mar, Alycia Diaz IMMUNIZATIONS No Information SOCIAL HISTORY [...] day Active Vitamin D (Ergocalciferol) 1.25 MG (18869 UT) 1 capsul e Orally Weekly for [...] Information RESULTS No Results REASON FOR VISIT Pre-op: Hold Plaquenil MEDICAL (GENERAL) HISTORY Type Description Date Medical [...] tablets Orally daily for 30 days Sep, 21 D3 Vitamin 2000 1 tablet orally daily for 30 days Folic Acid 1 MG 1 tablet Orally Once a day for 30 day(s) Next Appt Details Provider Name:Alycia Diaz, 2021-04-08 11:15:00 AM, [address] [place] [address], , [place], [place], [facility], Insurance Providers Payer Name Payer Address Payer Phone Insured Name Patient Relati onship to Insured Coverage Start Date Coverage End Date [facility] [address] [facility] [id number] JYOTI CHEN self
--- OUTSIDE RECORDS SUMMARY | 2021-04-09 11:17 | CCD | Continuity of Care Document ---
Author Author [facility] Organization Unknown Address [address] [place] [address] Phone [phone] Care Team Providers Care Electric Well Logging Operator Name Role Phone Clinic, [facility] [phone] Problems Description No Information Available Social History Type Date Description Comments Sex Unknown Tobacco Use Start: Unknown Never Smoked Cigarettes ETOH Use Social Drinker Sun Exposure moderate amount of sun exposure Sun Exposure Has never used tanning bed Sun Exposure Has never experienced blistering from sunburns Sun Exposure Uses > 30 SPF Occasionally Allergies, Adverse Reactions, Alerts Description No Known Drug Allergies Medications Active Medications SIG Qnty Indications Ordering Provide r Date Valtrex Unknown Nexplanon Unknown Vitamin D3 Unknown Folic Acid Unknown Plaquenil Unknown Naproxen Unknown Immunizations Description No Information Available Vital Signs Date Vital Result Comment 01/21/2021 2:09pm BP Systolic 124 mmHg BP Diastolic 70 mmHg Weight 136.00 lb Respiratory Rate 18 /min 12/24/2020 2:57pm Weight 136.00 lb Respiratory Rate 18 /min Results Description No Information Available Procedures Date Code Description Status 01/21/2021 97671 Destruction Benign L esions Other Than Skin Tags Or Cutan Vascular Completed 12/24/2020 34244 Destruction Benign L esions Other Than Skin Tags Or Cutan Vascular Completed 11/12/2020 09452 Office/Outpatient Established Mo d MDM 30-39 Min Completed 11/12/2020 57835 Destruction Benign L esions Other Than Skin Tags Or Cutan Vascular Completed Medical Devices Description No Information Available Encounters Type Date Location Provider Dx Diagnosis Office Visit 11/12/2020 10:45a Main Office Phyl Brandon, [facility] B07. 9 Viral wart, unspecified B07.8 Other viral warts Assessments Date Code Description Provider 01/21/2021 B07.8 Other viral warts Mary marcus, F.N.P. 12/24/2020 B07.9 Viral wart, unspecified Phyl Elysia brian, [facility] 12/24/2020 B07.8 Other viral warts Phyl Brandon, [facility] 11/12/2020 B07.9 Viral wart, unspecified Phyl Elysia brian, [facility] 11/12/2020 B07.8 Other viral warts Phyl Brandon, [facility] Plan of Treatment Future Appointment(s):* 02/19/2021 2:00 pm - [facility] at Main Office 01/21/2021 - Mary Campa, F.N.P.* B07.8 Other viral warts* Comments:* Discussed that warts are a virus and that it may take more then one treatment for complete resolutionDiscussed treatment options (LN2, desiccation and Cantharone) and reviewed processes. Risk and benefits of LN2 discussed Discussed that the areas treated with LN2 will get red, bubble up/blister, maybe get a little weepy, form a scab then heal. Discussed that if the blisters get too big and pressure is painful to wipe a needle with alcohol and make a opening to drain the fluidInformed consent signed by patient/parentPared wart with #15 blade.LN2 was applied 1 warts with a cotton tipped applicator. Patient tolerated the procedure well . No complications Can use ice or NSAID's PRN for pain. Wound care instructions given.Recommended using OTC wart removal like compound W or Dr. Moctezuma's wart bandages in between visits. Instructed to call with any problems * Follow up:* 4 weeks - wart follow up Functional Status Description No Information Available Mental Status Description No Information Available Referrals Refer to Reason for Referral Status Appt Date Shelley Rodríguez NP [address] [place] [address] [phone]
--- OUTSIDE RECORDS SUMMARY | 2021-04-09 13:02 | CCD ---
Author Author [facility] Organization [facility] Address Unknown Phone Unavailable Care Team Providers Care Test Car Driver Name Role Phone Antoni MARTINEZ MD Unavailable [...] MARTINEZ MD Unavailable Unavailable Kizzy Saab Phyl ROLLING MACHINE TENDER-BC Unavailable Unavailable Kizzy Saab Phyl ROLLING MACHINE TENDER-BC Unavailable Unavailable Saab, A Phyl ROLLING MACHINE TENDER-BC Unavailable Unavailable Saab, A Phyl ROLLING MACHINE TENDER-BC Unavailable Unavailable Saab, A Phyl ROLLING MACHINE TENDER-BC Unavailable Unavailable Saab, A Phyl ROLLING MACHINE TENDER-BC Unavailable Unavailable Saab, A Phyl ROLLING MACHINE TENDER-BC Unavailable Unavailable Saab, A Phyl ROLLING MACHINE TENDER-BC Unavailable Unavailable Saab, A Phyl ROLLING MACHINE TENDER-BC Unavailable Unavailable Saab, A Phyl ROLLING MACHINE TENDER-BC Unavailable Unavailable Saab, A Phyl ROLLING MACHINE TENDER-BC Unavailable Unavailable Saab, A Phyl ROLLING MACHINE TENDER-BC Unavailable Unavailable Saab, A Phyl ROLLING MACHINE TENDER-BC Unavailable Unavailable Saab, A Phyl ROLLING MACHINE TENDER-BC Unavailable Unavailable Saab, A Phyl ROLLING MACHINE TENDER-BC Unavailable Unavailable Saab, A Phyl ROLLING MACHINE TENDER-BC Unavailable Unavailable Saab, A Phyl ROLLING MACHINE TENDER-BC Unavailable Unavailable Saab, A Phyl ROLLING MACHINE TENDER-BC Unavailable Unavailable Saab, A Phyl ROLLING MACHINE TENDER-BC Unavailable Unavailable Saab, A Phyl ROLLING MACHINE TENDER-BC Unavailable Unavailable Saab, A Phyl ROLLING MACHINE TENDER-BC Unavailable Unavailable Saab, A Phyl ROLLING MACHINE TENDER-BC Unavailable Unavailable Saab, A Phyl ROLLING MACHINE TENDER-BC Unavailable Unavailable Saab, A Phyl ROLLING MACHINE TENDER-BC Unavailable Unavailable Saab, A Phyl ROLLING MACHINE TENDER-BC Unavailable Unavailable Saab, A Phyl ROLLING MACHINE TENDER-BC Unavailable Unavailable Saab, A Phyl ROLLING MACHINE TENDER-BC Unavailable Unavailable Saab, A Phyl ROLLING MACHINE TENDER-BC Unavailable Unavailable Saab, A Phyl ROLLING MACHINE TENDER-BC Unavailable Unavailable Saab, A Phyl ROLLING MACHINE TENDER-BC Unavailable Unavailable Saab, A Phyl ROLLING MACHINE TENDER-BC Unavailable Unavailable Saab, A Phyl ROLLING MACHINE TENDER-BC Unavailable Unavailable [facility] Unavailable Unavailable [...] Christopher PA-C Unavailable Unavailable Quinn, L Savita ROLLING MACHINE TENDER Unavailable Unavailable Quinn, L Savita ROLLING MACHINE TENDER Unavailable Unavailable Quinn, L Savita ROLLING MACHINE TENDER Unavailable Unavailable Quinn, L Savita ROLLING MACHINE TENDER Unavailable Unavailable Quinn, L Savita ROLLING MACHINE TENDER Unavailable Unavailable Quinn, L Savita ROLLING MACHINE TENDER Unavailable Unavailable Quinn, L Savita ROLLING MACHINE TENDER Unavailable Unavailable Quinn, L Savita ROLLING MACHINE TENDER Unavailable Unavailable Quinn, L Savita ROLLING MACHINE TENDER Unavailable Unavailable Quinn, L Savita ROLLING MACHINE TENDER Unavailable Unavailable Quinn, L Savita ROLLING MACHINE TENDER Unavailable Unavailable Quinn, L Savita ROLLING MACHINE TENDER Unavailable Unavailable Quinn, L Savita ROLLING MACHINE TENDER Unavailable Unavailable Quinn, L Savita ROLLING MACHINE TENDER Unavailable Unavailable Quinn, L Savita ROLLING MACHINE TENDER Unavailable Unavailable Quinn, L Asvita ROLLING MACHINE TENDER Unavailable Unavailable Quinn, L Savita ROLLING MACHINE TENDER Unavailable Unavailable Quinn, L Savita ROLLING MACHINE TENDER Unavailable Unavailable Quinn, L Savita ROLLING MACHINE TENDER Unavailable Unavailable Quinn, L Savita ROLLING MACHINE TENDER Unavailable Unavailable Quinn, L Savita ROLLING MACHINE TENDER Unavailable Unavailable Quinn, L Savita ROLLING MACHINE TENDER Unavailable Unavailable Quinn, L Savita ROLLING MACHINE TENDER Unavailable Unavailable Quinn, L Savita ROLLING MACHINE TENDER Unavailable Unavailable Quinn, L Savita ROLLING MACHINE TENDER Unavailable Unavailable Quinn, L Savita ROLLING MACHINE TENDER Unavailable Unavailable Quinn, L Savita ROLLING MACHINE TENDER Unavailable Unavailable Quinn, L Savita ROLLING MACHINE TENDER Unavailable Unavailable Quinn, L Savita ROLLING MACHINE TENDER Unavailable Unavailable Quinn, L Savita ROLLING MACHINE TENDER Unavailable Unavailable Quinn, L Savita ROLLING MACHINE TENDER Unavailable Unavailable Quinn, L Savita ROLLING MACHINE TENDER Unavailable Unavailable Quinn, L Savita ROLLING MACHINE TENDER Unavailable Unavailable Quinn, L Savita ROLLING MACHINE TENDER Unavailable Unavailable Quinn, L Savita ROLLING MACHINE TENDER Unavailable Unavailable Quinn, L Savita ROLLING MACHINE TENDER Unavailable Unavailable Quinn, L Savita ROLLING MACHINE TENDER Unavailable Unavailable Quinn, L Savita ROLLING MACHINE TENDER Unavailable Unavailable Quinn, L Savita ROLLING MACHINE TENDER Unavailable Unavailable Quinn, L Savita ROLLING MACHINE TENDER Unavailable Unavailable Quinn, L Savita ROLLING MACHINE TENDER Unavailable Unavailable Quinn, L Savita ROLLING MACHINE TENDER Unavailable Unavailable Quinn, L Savita ROLLING MACHINE TENDER Unavailable Unavailable Quinn, L Savita ROLLING MACHINE TENDER Unavailable Unavailable Quinn, L Savita ROLLING MACHINE TENDER Unavailable Unavailable Re-disclosure Warning The records that [...] is protected by Article 27-F of the [facility] Public Health law. If you continue you may have access to information: Regarding HIV / AIDS; Provided by facilities licensed or operated by the [facility] Office of Mental Health; or Provided by the [facility] Office for People With Developmental Disabilities. If such information is present, then the following [facility] mandated warning applies: This information has [...] law may result in a fine or mcc sentence or both. A general authorization for the release of medical or other information is NOT sufficient authorization for further disc losure. Encounters Encounter Providers Location Date Indications Data Source(s ) [place] [address] [facility] [address] 03/21/2021 12:00:00 AM EDT eCW1 ([facility]) Unknown [address] [facility] [address] 03/11/2021 12:00:00 AM EDT eCW1 ([facility]) Outpatient 03/06/2021 04:08:40 PM EDT - 021 04:42:20 PM EDT [facility] ([facility]) [place] [address] [facility] [address] 02/10/2021 12:00:00 AM EDT eCW1 ([facility]) [place] [address] [facility] [address] 02/10/2021 12:00:00 AM EDT eCW1 ([facility]) Outpatient [address] [facility] [address] 11/21/2020 12:00:00 AM EDT [facility]CW1 [facility] Outpatient Attender: Chuy Mosher PA-C 11/18/2020 02:11:59 PM EDT - 11/18/2020 03:35:22 PM EDT [facility] ([facility]) Outpatient Attender: Duarte Saab [facility] Main Office 0 11/12/2020 10:45:00 AM EDT MEDENT ([facility]) [place] [address] [facility] [address] 11/12/2020 12:00:00 AM EDT [facility]CW1 [facility] Outpatient Attender: Savita WESTBROOKonsultant: [facility] 11/05/2020 10:03:00 AM EDT - 11/05/2020 11:03:00 AM EDT [facility] Outpatient Attender: RENAE MARTINEZ MD 10/11 03:42:42 PM EDT - 10/11/2020 04:59:40 PM EDT [facility] ([facility] ) [place] [address] [facility] [address] 09/26/2020 12:00:00 AM EDT eCW1 ([facility]) [place] [address] [facility] [address] 09/21/2020 12:00:00 AM EDT eCW1 ([facility]) [place] [address] [facility] [address] 09/20/2020 12:00:00 AM EDT eCW1 ([facility]) Unknown [address] [facility] [address] 08/25/2020 12:00:00 AM EST eCW1 ([facility]) Outpatient [address] [facility] [address] 08/19/2020 12:00:00 AM EST eCW1 ([facility]) Unknown [address] [facility] [address] 08/01/2020 12:00:00 AM EST eCW1 ([facility]) Unknown [address] [facility] [address] 07/27/2020 12:00:00 AM EST eCW1 ([facility]) Outpatient [address] [facility] [address] 07/23/2020 12:00:00 AM EST eCW1 ([facility]) Medications Medication Brand Name Start Date Product Form Dose Route Admi nistrative Instructions Pharmacy Instructions Status Indications Reaction Description Data Source(s) Naproxen 500 MG Oral Tablet Naproxen 500 MG 11/21/2020 12:00:00 AM EDT 1.0 {tablet_with_food} active Naproxen 500 MG eCW1 ([facility]) Naproxen 500 MG Oral Tablet Naproxen 500 MG 11/21/2020 12:00:00 AM EDT 1.0 {tablet_with_food} active Naproxen 500 MG eCW1 ([facility]) Naproxen 500 MG Oral Tablet Naproxen 500 MG 11/21/2020 12:00:00 AM EDT 1.0 {tablet_with_food} active Naproxen 500 MG eCW1 ([facility]) Naproxen 500 MG Oral Tablet Naproxen 500 MG 11/21/2020 12:00:00 AM EDT 1.0 {tablet_with_food} active Naproxen 500 MG eCW1 ([facility]) Naproxen 500 MG Oral Tablet Naproxen 500 MG 11/21/2020 12:00:00 AM EDT 1.0 {tablet_with_food} active Naproxen 500 MG eCW1 ([facility]) Hydroxychloroquine Sulfate 200 MG Oral Tablet [Plaquen il] Plaquenil 200 MG Plaquenil 200 MG 09/21/2020 12:00:00 AM EDT 1.5 {tablets} active Plaquenil 200 MG eCW1 ([facility]) Hydroxychloroquine Sulfate 200 MG Oral Tablet [Plaquen il] Plaquenil 200 MG Plaquenil 200 MG 09/21/2020 12:00:00 AM EDT 1.5 {tablets} active Plaquenil 200 MG eCW1 ([facility]) Hydroxychloroquine Sulfate 200 MG Oral Tablet [Plaquen il] Plaquenil 200 MG Plaquenil 200 MG 09/21/2020 12:00:00 AM EDT 1.5 {tablets} active Plaquenil 200 MG eCW1 ([facility]) Hydroxychloroquine Sulfate 200 MG Oral Tablet [Plaquen il] Plaquenil 200 MG Plaquenil 200 MG 09/21/2020 12:00:00 AM EDT a ctive Plaquenil 200 MG eCW1 ([facility]) Hydroxychloroquine Sulfate 200 MG Oral Tablet [Plaquen il] Plaquenil 200 MG Plaquenil 200 MG 09/21/2020 12:00:00 AM EDT a ctive Plaquenil 200 MG eCW1 ([facility]) Hydroxychloroquine Sulfate 200 MG Oral Tablet [Plaquen il] Plaquenil 200 MG Plaquenil 200 MG 09/21/2020 12:00:00 AM EDT a ctive Plaquenil 200 MG eCW1 ([facility]) Hydroxychloroquine Sulfate 200 MG Oral Tablet [Plaquen il] Plaquenil 200 MG Plaquenil 200 MG 09/21/2020 12:00:00 AM EDT 1.5 {tablets} active Plaquenil 200 MG eCW1 ([facility]) Hydroxychloroquine Sulfate 200 MG Oral Tablet [Plaquen il] Plaquenil 200 MG Plaquenil 200 MG 09/21/2020 12:00:00 AM EDT 1.5 {tablets} active Plaquenil 200 MG eCW1 ([facility]) Hydroxychloroquine Sulfate 200 MG Oral Tablet [Plaquen il] Plaquenil 200 MG Plaquenil 200 MG 09/21/2020 12:00:00 AM EDT a ctive Plaquenil 200 MG eCW1 ([facility]) D3 Vitamin 1999 UNK 08/19/2020 12:00:00 AM EST 1.0 {tablet} active D3 Vitamin 1999 eCW1 ([facility]) Folic Acid 1 MG Oral Tablet Folic Acid 1 MG 08/19/2020 12:00:00 AM EST 1.0 {tablet} active Folic Acid 1 MG eCW1 ([facility]) Folic Acid 1 MG Oral Tablet Folic Acid 1 MG 08/19/2020 12:00:00 AM EST 1.0 {tablet} active Folic Acid 1 MG eCW1 ([facility]) D3 Vitamin 1999 UNK 08/19/2020 12:00:00 AM EST 1.0 {tablet} active D3 Vitamin 1999 eCW1 ([facility]) Folic Acid 1 MG Oral Tablet Folic Acid 1 MG 08/19/2020 12:00:00 AM EST 1.0 {tablet} active Folic Acid 1 MG eCW1 ([facility]) meloxicam 7.5 MG Oral Tablet Meloxicam 7.5 MG Meloxicam 7.5 MG 08/19/2020 12:00:00 AM EST 1.0 {tablet} active Me loxicam 7.5 MG eCW1 ([facility]) Folic Acid 1 MG Oral Tablet Folic Acid 1 MG 08/19/2020 12:00:00 AM EST 1.0 {tablet} active Folic Acid 1 MG eCW1 ([facility]) meloxicam 7.5 MG Oral Tablet Meloxicam 7.5 MG Meloxicam 7.5 MG 08/19/2020 12:00:00 AM EST 1.0 {tablet} active Me loxicam 7.5 MG eCW1 ([facility]) meloxicam 7.5 MG Oral Tablet Meloxicam 7.5 MG Meloxicam 7.5 MG 08/19/2020 12:00:00 AM EST 1.0 {tablet} active Me loxicam 7.5 MG eCW1 ([facility]) meloxicam 7.5 MG Oral Tablet Meloxicam 7.5 MG Meloxicam 7.5 MG 08/19/2020 12:00:00 AM EST 1.0 {tablet} active Me loxicam 7.5 MG eCW1 ([facility]) Folic Acid 1 MG Oral Tablet Folic Acid 1 MG 08/19/2020 12:00:00 AM EST 1.0 {tablet} active Folic Acid 1 MG eCW1 ([facility]) D3 Vitamin 1999 UNK 08/19/2020 12:00:00 AM EST 1.0 {tablet} active D3 Vitamin 1999 eCW1 ([facility]) D3 Vitamin 1999 UNK 08/19/2020 12:00:00 AM EST 1.0 {tablet} active D3 Vitamin 1999 eCW1 ([facility]) meloxicam 7.5 MG Oral Tablet Meloxicam 7.5 MG Meloxicam 7.5 MG 08/19/2020 12:00:00 AM EST 1.0 {tablet} active Me loxicam 7.5 MG eCW1 ([facility]) meloxicam 7.5 MG Oral Tablet Meloxicam 7.5 MG Meloxicam 7.5 MG 08/19/2020 12:00:00 AM EST 1.0 {tablet} active Me loxicam 7.5 MG eCW1 ([facility]) Folic Acid 1 MG Oral Tablet Folic Acid 1 MG 08/19/2020 12:00:00 AM EST 1.0 {tablet} active Folic Acid 1 MG eCW1 ([facility]) D3 Vitamin 1999 UNK 08/19/2020 12:00:00 AM EST 1.0 {tablet} active D3 Vitamin 1999 eCW1 ([facility]) D3 Vitamin 1999 UNK 08/19/2020 12:00:00 AM EST 1.0 {tablet} active D3 Vitamin 1999 eCW1 ([facility]) meloxicam 7.5 MG Oral Tablet Meloxicam 7.5 MG Meloxicam 7.5 MG 08/19/2020 12:00:00 AM EST 1.0 {tablet} active Me loxicam 7.5 MG eCW1 ([facility]) D3 Vitamin 2000 UNK 08/19/2020 12:00:00 AM EST 1.0 {tablet} active D3 Vitamin 1999 eC1 ([facility]) Folic Acid 1 MG Oral Tablet Folic Acid 1 MG 08/19/2020 12:00:00 AM EST 1.0 {tablet} active Folic Acid 1 MG eCW1 ([facility]) Ergocalciferol 21005 UNT Oral Capsule Vi tamin D (Ergocalciferol) 1.25 MG (50837 UT) Vitamin D (Ergocalciferol) 1.25 MG (39685 UT) 07/27/2020 12:00:0 0 AM EST 1.0 {capsule} active Vitamin D (Ergocal ciferol) 1.25 MG (64483 UT) [facility] ([facility]) Ergocalciferol 86275 UNT Oral Capsule Vi tamin D (Ergocalciferol) 1.25 MG (81893 UT) Vitamin D (Ergocalciferol) 1.25 MG (25248 UT) 07/27/2020 12:00:0 0 AM EST 1.0 {capsule} active Vitamin D (Ergocal ciferol) 1.25 MG (05631 UT) [facility] ([facility]) Ergocalciferol 10435 UNT Oral Capsule Vi tamin D (Ergocalciferol) 1.25 MG (37036 UT) Vitamin D (Ergocalciferol) 1.25 MG (27695 UT) 07/27/2020 12:00:0 0 AM EST 1.0 {capsule} active Vitamin D (Ergocal ciferol) 1.25 MG (88602 UT) [facility] ([facility]) Ergocalciferol 31890 UNT Oral Capsule Vi tamin D (Ergocalciferol) 1.25 MG (07173 UT) Vitamin D (Ergocalciferol) 1.25 MG (40542 UT) 07/27/2020 12:00:0 0 AM EST 1.0 {capsule} active Vitamin D (Ergocal ciferol) 1.25 MG (14540 UT) [facility] ([facility]) Ergocalciferol 60912 UNT Oral Capsule Vi tamin D (Ergocalciferol) 1.25 MG (16220 UT) Vitamin D (Ergocalciferol) 1.25 MG (96960 UT) 07/27/2020 12:00:0 0 AM EST 1.0 {capsule} active Vitamin D (Ergocal ciferol) 1.25 MG (84874 UT) [facility] ([facility]) Ergocalciferol 23475 UNT Oral Capsule Vi tamin D (Ergocalciferol) 1.25 MG (97045 UT) Vitamin D (Ergocalciferol) 1.25 MG (47440 UT) 07/27/2020 12:00:0 0 AM EST 1.0 {capsule} active Vitamin D (Ergocal ciferol) 1.25 MG (29642 UT) [facility] ([facility]) Ergocalciferol 27435 UNT Oral Capsule Vi tamin D (Ergocalciferol) 1.25 MG (96774 UT) Vitamin D (Ergocalciferol) 1.25 MG (04713 UT) 07/27/2020 12:00:0 0 AM EST 1.0 {capsule} active Vitamin D (Ergocal ciferol) 1.25 MG (42869 UT) [facility] ([facility]) Ergocalciferol 79506 UNT Oral Capsule Vi tamin D (Ergocalciferol) 1.25 MG (67175 UT) Vitamin D (Ergocalciferol) 1.25 MG (16556 UT) 07/27/2020 12:00:0 0 AM EST 1.0 {capsule} active Vitamin D (Ergocal ciferol) 1.25 MG (64586 UT) [facility] ([facility]) Ergocalciferol 00684 UNT Oral Capsule Vi tamin D (Ergocalciferol) 1.25 MG (22754 UT) Vitamin D (Ergocalciferol) 1.25 MG (16316 UT) 07/27/2020 12:00:0 0 AM EST 1.0 {capsule} active Vitamin D (Ergocal ciferol) 1.25 MG (84007 UT) [facility] ([facility]) Ergocalciferol 65041 UNT Oral Capsule Vi tamin D (Ergocalciferol) 1.25 MG (28854 UT) Vitamin D (Ergocalciferol) 1.25 MG (08989 UT) 07/27/2020 12:00:0 0 AM EST 1.0 {capsule} active Vitamin D (Ergocal ciferol) 1.25 MG (46222 UT) [facility] ([facility]) Ergocalciferol 89854 UNT Oral Capsule Vi tamin D (Ergocalciferol) 1.25 MG (60035 UT) Vitamin D (Ergocalciferol) 1.25 MG (65506 UT) 07/27/2020 12:00:0 0 AM EST 1.0 {capsule} active Vitamin D (Ergocal ciferol) 1.25 MG (72931 UT) [facility] ([facility]) Ergocalciferol 20349 UNT Oral Capsule Vi tamin D (Ergocalciferol) 1.25 MG (93839 UT) Vitamin D (Ergocalciferol) 1.25 MG (97515 UT) 07/27/2020 12:00:0 0 AM EST 1.0 {capsule} active Vitamin D (Ergocal ciferol) 1.25 MG (12824 UT) [facility] ([facility]) Ergocalciferol 79422 UNT Oral Capsule Vi tamin D (Ergocalciferol) 1.25 MG (95509 UT) Vitamin D (Ergocalciferol) 1.25 MG (80223 UT) 07/27/2020 12:00:0 0 AM EST 1.0 {capsule} active Vitamin D (Ergocal ciferol) 1.25 MG (29727 UT) [facility] ([facility]) Ergocalciferol 68049 UNT Oral Capsule Vi tamin D (Ergocalciferol) 1.25 MG (95058 UT) Vitamin D (Ergocalciferol) 1.25 MG (09380 UT) 07/27/2020 12:00:0 0 AM EST 1.0 {capsule} active Vitamin D (Ergocal ciferol) 1.25 MG (45503 UT) [facility] ([facility]) Ergocalciferol 10350 UNT Oral Capsule Vi tamin D (Ergocalciferol) 1.25 MG (69044 UT) Vitamin D (Ergocalciferol) 1.25 MG (46330 UT) 07/27/2020 12:00:0 0 AM EST 1.0 {capsule} active Vitamin D (Ergocal ciferol) 1.25 MG (14628 UT) [facility] ([facility]) Ergocalciferol 92307 UNT Oral Capsule Vi tamin D (Ergocalciferol) 1.25 MG (64830 UT) Vitamin D (Ergocalciferol) 1.25 MG (91463 UT) 07/27/2020 12:00:0 0 AM EST 1.0 {capsule} active Vitamin D (Ergocal ciferol) 1.25 MG (08187 UT) [facility] ([facility]) Ergocalciferol 53523 UNT Oral Capsule Vi tamin D (Ergocalciferol) 1.25 MG (43082 UT) Vitamin D (Ergocalciferol) 1.25 MG (82791 UT) 07/27/2020 12:00:0 0 AM EST 1.0 {capsule} active Vitamin D (Ergocal ciferol) 1.25 MG (06328 UT) [facility] ([facility]) Ergocalciferol 53358 UNT Oral Capsule Vi tamin D (Ergocalciferol) 1.25 MG (45802 UT) Vitamin D (Ergocalciferol) 1.25 MG (19207 UT) 07/27/2020 12:00:0 0 AM EST 1.0 {capsule} active Vitamin D (Ergocal ciferol) 1.25 MG (79228 UT) [facility] ([facility]) Ergocalciferol 11197 UNT Oral Capsule Vi tamin D (Ergocalciferol) 1.25 MG (20638 UT) Vitamin D (Ergocalciferol) 1.25 MG (35714 UT) 07/27/2020 12:00:0 0 AM EST 1.0 {capsule} active Vitamin D (Ergocal ciferol) 1.25 MG (88408 UT) [facility] ([facility]) Ergocalciferol 01463 UNT Oral Capsule Vi tamin D (Ergocalciferol) 1.25 MG (33119 UT) Vitamin D (Ergocalciferol) 1.25 MG (71831 UT) 07/27/2020 12:00:0 0 AM EST 1.0 {capsule} active Vitamin D (Ergocal ciferol) 1.25 MG (60729 UT) [facility] ([facility]) Ergocalciferol 90645 UNT Oral Capsule Vi tamin D (Ergocalciferol) 1.25 MG (28885 UT) Vitamin D (Ergocalciferol) 1.25 MG (99213 UT) 07/27/2020 12:00:0 0 AM EST 1.0 {capsule} active Vitamin D (Ergocal ciferol) 1.25 MG (06919 UT) [facility] ([facility]) Ergocalciferol 83863 UNT Oral Capsule Vi tamin D (Ergocalciferol) 1.25 MG (54778 UT) Vitamin D (Ergocalciferol) 1.25 MG (06867 UT) 07/27/2020 12:00:0 0 AM EST 1.0 {capsule} active Vitamin D (Ergocal ciferol) 1.25 MG (20643 UT) [facility] ([facility]) Ergocalciferol 93981 UNT Oral Capsule Vi tamin D (Ergocalciferol) 1.25 MG (37316 UT) Vitamin D (Ergocalciferol) 1.25 MG (34874 UT) 07/27/2020 12:00:0 0 AM EST 1.0 {capsule} active Vitamin D (Ergocal ciferol) 1.25 MG (88656 UT) [facility] ([facility]) Insurance Providers Payer name Policy type / Coverage type Policy ID Covered alliance party ID Covered alliance party's relationship to torres Policy Torres Plan Information / [id number] Spouse [id number] [employer] [id number] [facility] [id number] [employer] - O/P [id number] Problems, Conditions, and Diagnoses Code Display Name Description Problem Type Effective Dates Data Source(s) 14236510 Carpal tunnel syndrome Carpal tunnel syndrome Problem 09/03/2020 12:00:00 AM EDT ABDI ([facility] ) 41760040 Hand pain Hand pain Problem 09/03/2020 12:00:00 AM ED T MEDENT ([facility] ) [id number] Numbness of hand Numbness of hand Problem 09/03/2020 12 :00:00 AM EDT MEDENT ([facility] ) M32.19 [id number] 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, unspecified SLE type Problem 08/19/2020 12:00:00 AM EST eCW1 ([facility]) M32.9 [id number] Systemic lupus eryth ematosus, unspecified SLE type, unspecified organ involvement status Problem 08/19/2020 12:00:00 AM EST eCW1 ([facility]) E55.9 [id number] Vitamin D insufficiency Problem 07/27/2020 1 2:00:00 AM EST eCW1 ([facility]) R20.2 [id number] Paresthesia Problem 07/23/2020 12:00:[address] eCW1 ([facility]) R79.82 [id number] Elevated C-reactive protein (CRP) Prob neil 07/23/2020 12:00:00 AM EST eCW1 ([facility]) Surgeries/Procedures Procedure Description Date Indications Data Source(s) DESTRUCTION BENIGN LESIONS UP TO 14 01/21/2021 12:00:0 0 AM EDT MEDENT ([facility]) DESTRUCTION BENIGN LESIONS UP TO 14 12/24/2020 12:00:0 0 AM EDT MEDENT ([facility]) DESTRUCTION BENIGN LESIONS UP TO 14 11/12/2020 12:00:0 0 AM EDT MEDENT ([facility]) OFFICE OUTPATIENT VISIT 25 MINUTES 11/12/2020 12:00:00 AM EDT MEDENT ([facility]) Needle electromyography, each extremity, with related paraspinal areas, when performed, done with nerve conduction, amplitude and latency/velocity study; complete, five or more muscles studied, innervated by three or more nerves or four or more spinal levels (list separately in addition to the code for primary procedure). 09/03/2020 12:00:00 AM EDT MEDEN T ([facility], ) Needle electromyography, each extremity, with related paraspinal areas, when performed, done with nerve conduction, amplitude and latency/velocity study; complete, five or more muscles studied, innervated by three or more nerves or four or more spinal levels (list separately in addition to the code for primary procedure). 09/03/2020 12:00:00 AM EDT MEDEN T ([facility]) Needle Electromyography Non Extremity Done With Nerve Conduc tion 09/03/2020 12:00:00 AM EDT MEDENT ([facility]) Needle Electromyography Non Extremity Done With Nerve Conduc tion 09/03/2020 12:00:00 AM EDT MEDENT ([facility]) 13583 Nerve conduction studies 13 or more studies NEW 201209/03/2020 12:00:00 AM EDT MEDENT ([facility] ) Results ID Date Data Source [id number] 03/06/2021 04:30:00 PM EDT JOEL Name Value Range Interpretation Code Description Data Machelle rce(s) Supporting Document(s) SARS-CoV-2 RNA Resp Ql SAROJ+probe NOT DETECTED [facility] This lab was ordered by FAUSTO cornejo and reported by FAUSTO Cervantes. ID Date Data Source [id number] 11/06/2020 09:53:00 AM EDT [place] [id number] PHONE: [phone] FAX: [phone] Name .................. : KELSIE LINDAMARY Acct Number.................. : [id number] ROOM. ................. : MR Number ................... : [id number] Stay type ............. : O/P Discharge Date......... ... : 11/05/20 Admit Date ......... : 11/05/20 Admit Phys .................... : ROCIO Weaver Date of ....... : 1995 Family Phys ................... : UNKNOWN Phone .................. : [phone] Age ................................ : 25 Film# .................. .:[id number] Sex ................................. : F Unsigned transcriptions are preliminary reports and do not represent a medical or legal document MRI BRAIN W/O CONTRAST [id number] COMPLETE:11/05/20 11:21 [facility] 20202 Reason for Exam: NEW ONSET FRONTAL HEADACHES [...] By Tin Rebolledo MD , 11/06/20 09:53, [facility] Transcribe Initials: JUNITO , Transcribe Date: 11/06/20 04:28, Dictation Date: Copy for: ROCIO JHAVERI Copy for: 710 MED REC Page 1 of 1 Name Value Range Interpretation Code Description Data Machelle rce(s) Supporting Document(s) ID Date Data Source [id number] 10/15/2020 04:51:00 PM EDT [facility] Name Value Range Interpretation Code Description Data Machelle rce(s) Supporting Document(s) COVID-19 RT-PCR NASAL SWAB Not Detected Not Detected [facility] A not detected (negative) test [...] developed and its performance characteristics determined by [employer] and verified at [facility]. It has not been cleared or approved by the U.S. Food and Drug Administration for diagnostic use. This test has been authorized by FDA under an EUA for use by authorized laboratories. Results should be used in conjunction with clinical findings, and should not form the sole basis for a diagnosis or treatment decision. Methods: SARS-CoV-2 Multiplex RT-PCR Assay ID Date Data Source [id number] 10/11/2020 04:00:00 PM EDT [facility] Name Value Range Interpretation Code Description Data [facility] rce(s) Supporting Document(s) SARS-CoV-2 (COVID-19) N gene [Presence] in Respiratory specimen by SAROJ with probe detection NEGATIVE [facility] This lab was ordered by [facility] and reported by [facility]. ID Date Data Source [id number] 10/11/2020 12:00:00 AM EDT [facility] Name Value Range Interpretation Code Description Data Machelle rce(s) Supporting Document(s) Carestart Rapid COVID Antigen Test Negative [facility] This lab was reported by [facility]. ID Date Data Source Anti-U1 HOTEL FRONT DESK AGENT AB 07/23/2020 12:00:00 AM EST eCW1 ([facility]) Name Value Range Interpretation Code Description Data Machelle rce(s) Supporting Document(s) <20 <20 eCW1 ([facility]) ID Date Data Source Anti [place]ust[place](Sm) AB 07/23/2020 12:00:00 AM EST eCW1 ([facility]) Name Value Range Interpretation Code Description Data Machelle rce(s) Supporting Document(s) <20 <20 eCW1 ([facility]) ID Date Data Source ABDULAZIZ TITER & PATTERN 07/23/2020 12:00:00 AM EST eCW1 ([facility]) Name Value Range Interpretation Code Description Data Machelle rce(s) Supporting Document(s) Positive . eCW1 ([facility]) ID Date Data Source CYCLIC CITRULLINATED PEPTIDE 07/23/2020 12:00:00 AM EST eCW1 ([facility]) Name Value Range Interpretation Code Description Data Machelle rce(s) Supporting Document(s) 6 0-19 eCW1 ([facility]) ID Date Data Source ANTI SCLERODERMA ANTIBODIES 07/23/2020 12:00:00 AM EST eCW1 ([facility]) Name Value Range Interpretation Code Description Data Machelle rce(s) Supporting Document(s) <0.2 0.0-0.9 eCW1 ([facility]) ID Date Data Source ANTI DOUBLE STRAND DNA MADDIE 07/23/2020 12:00:00 AM EST eCW1 ( [facility]) Name Value Range Interpretation Code Description Data Machelle rce(s) Supporting Document(s) eCW1 ([facility]) ID Date Data Source ANTI-SJOGRENS A&B ANTIBODIES 07/23/2020 12:00:00 AM EST eCW1 ([facility]) Name Value Range Interpretation Code Description Data Machelle rce(s) Supporting Document(s) <0.2 0.0-0.9 eCW1 ([facility]) <0.2 0.0-0.9 eCW1 ([facility]) ID Date Data Source ANTI-HISTONE ANTIBODIES 07/23/2020 12:00:00 AM EST eCW1 ([facility]) Name Value Range Interpretation Code Description Data Machelle rce(s) Supporting Document(s) 0.7 0.0-0.9 eCW1 ([facility]) ID Date Data Source ANTI-CARDIOLIPIN ANTIBODIES 07/23/2020 12:00:00 AM EST eCW1 ([facility]) Name Value Range Interpretation Code Description Data Machelle rce(s) Supporting Document(s) <9 0-14 eCW1 ([facility]) <9 0-11 eCW1 ([facility]) 12 0-12 eCW1 ([facility]) ID Date Data Source ANTI CENTROMERE ANTIBODY 07/23/2020 12:00:00 AM EST eCW1 ([facility]) Name Value Range Interpretation Code Description Data Machelle rce(s) Supporting Document(s) <0.2 0.0-0.9 eCW1 ([facility]) ID Date Data Source COMPLEMENT TOTAL (CH50) 07/23/2020 12:00:00 AM EST eCW1 ([facility]) Name Value Range Interpretation Code Description Data Machelle rce(s) Supporting Document(s) > 60 >41 eCW1 ([facility]) ID Date Data Source BETA-2 GLYCOPROTEIN 1 MADDIE ROHITH 07/23/2020 12:00:00 AM EST eCW 1 ([facility]) Name Value Range Interpretation Code Description Data Machelle rce(s) Supporting Document(s) <9 0-25 eCW1 ([facility]) <9 0-20 eCW1 ([facility]) <9 0-32 eCW1 ([facility]) ID Date Data Source VITAMIN D 25-HYDROXY 07/23/2020 12:00:00 AM EST eCW1 ([facility]) Name Value Range Interpretation Code Description Data Machelle rce(s) Supporting Document(s) 26.4 30.0-100.0 eCW1 ([facility]) ID Date Data Source VITAMIN B12 LEVEL 07/23/2020 12:00:00 AM EST eCW1 ([facility]) Name Value Range Interpretation Code Description Data Machelle rce(s) Supporting Document(s) 678 480-755 eCW1 ([facility]) ID Date Data Source PHOSPHOROUS LEVEL 07/23/2020 12:00:00 AM EST eCW1 ([facility]) Name Value Range Interpretation Code Description Data Machelle rce(s) Supporting Document(s) 3.5 2.5-4.9 eCW1 ([facility]) ID Date Data Source TSH 07/23/2020 12:00:00 AM EST eCW1 ([facility]) Name Value Range Interpretation Code Description Data Machelle rce(s) Supporting Document(s) 0.541 0.358-3.740 eCW1 [facility] ID Date Data Source RHEUMATOID FACTOR QUANT 07/23/2020 12:00:00 AM EST eCW1 ([facility]) Name Value Range Interpretation Code Description Data Machelle rce(s) Supporting Document(s) < 10.0 <15.0 eCW1 ([facility]) ID Date Data Source TOTAL PROTEIN,RANDOM URINE 07/23/2020 12:00:00 AM EST eCW1 ( [facility]) Name Value Range Interpretation Code Description Data Machelle rce(s) Supporting Document(s) < 5.0 0.0-12.0 eCW1 ([facility]) ID Date Data Source CREATININE,RANDOM URINE 07/23/2020 12:00:00 AM EST eCW1 ([facility]) Name Value Range Interpretation Code Description Data Machelle rce(s) Supporting Document(s) 60.8 eCW1 ([facility]) ID Date Data Source UA URINALYSIS 07/23/2020 12:00:00 AM EST eCW1 ([facility]) Name Value Range Interpretation Code Description Data Machelle rce(s) Supporting Document(s) eCW1 ([facility]) ID Date Data Source MAGNESIUM LEVEL 07/23/2020 12:00:00 AM EST eCW1 ([facility]) Name Value Range Interpretation Code Description Data Machelle rce(s) Supporting Document(s) 2.2 1.8-2.4 eCW1 ([facility]) ID Date Data Source IRON (FE) 07/23/2020 12:00:00 AM EST eCW1 ([facility]) Name Value Range Interpretation Code Description Data Machelle rce(s) Supporting Document(s) 50 50-170 eCW1 ([facility]) ID Date Data Source CPK CREATINE PHOSPHOKINASE 07/23/2020 12:00:00 AM EST eCW1 ( [facility]) Name Value Range Interpretation Code Description Data Machelle rce(s) Supporting Document(s) 150 26-192 eCW1 ([facility]) ID Date Data Source ERYTHROCYTE SEDIMENTATION RATE 07/23/2020 12:00:00 AM EST eC W1 ([facility]) Name Value Range Interpretation Code Description Data Machelle rce(s) Supporting Document(s) 7 0-20 eCW1 ([facility]) ID Date Data Source C REACTIVE PROTEIN QUANTITATIV (At [facility]) 07/23/2020 12:00 :00 AM EST eCW1 ([facility]) Name Value Range Interpretation Code Description Data Machelle rce(s) Supporting Document(s) < 0.30 0.00-0.30 eCW1 ([facility]) ID Date Data Source LUPUS TYPE ANTICOAGULANT SCREE 07/23/2020 12:00:00 AM EST eC W1 ([facility]) Name Value Range Interpretation Code Description Data Machelle rce(s) Supporting Document(s) 1.0 0-1.2 eCW1 ([facility]) ID Date Data Source CBC with Differential 07/23/2020 12:00:00 AM EST eCW1 ([facility]) Name Value Range Interpretation Code Description Data Machelle rce(s) Supporting Document(s) 41.8 36.0-47.0 eCW1 ([facility]) 13.7 12.0-15.5 eCW1 ([facility]) 4.70 4.00-5.40 eCW1 ([facility]) 7.2 4.0-10.0 eCW1 ([facility]) 88.9 80.0-96.0 eCW1 ([facility]) 32.8 32.0-36.5 eCW1 ([facility]) 11.9 11.5-14.5 eCW1 ([facility]) 29.1 27.0-33.0 eCW1 ([facility]) 315 150-450 eCW1 ([facility]) 8.3 0.0-5.0 eCW1 ([facility]) 33.8 24.0-44.0 eCW1 ([facility]) 54.3 36.0-66.0 eCW1 ([facility]) 2.4 1.5-5.0 eCW1 ([facility]) 3.9 1.5-8.5 eCW1 ([facility]) 0.7 0.0-1.0 eCW1 ([facility]) 2.6 0.0-3.0 eCW1 ([facility]) 0.2 0.0-0.5 eCW1 ([facility]) 0.6 0.0-0.8 eCW1 ([facility]) 0.1 0.0-0.2 eCW1 ([facility]) ID Date Data Source COMPLEMENT C4 07/23/2020 12:00:00 AM EST eCW1 ([facility]) Name Value Range Interpretation Code Description Data Machelle rce(s) Supporting Document(s) 27 10-40 eCW1 ([facility]) ID Date Data Source COMPLEMENT C3 07/23/2020 12:00:00 AM EST eCW1 ([facility]) Name Value Range Interpretation Code Description Data Machelle rce(s) Supporting Document(s) 88 90-242 eCW1 ([facility]) ID Date Data Source [id number] 05/23/2020 12:00:00 AM EST [facility] Name Value Range Interpretation Code Description Data Machelle rce(s) Supporting Document(s) SARS coronavirus 2 RNA [Presence] in Res piratory specimen by SAROJ with probe detection [facility] This lab was ordered by Billy Shell and reported by [employer]. Procedure Social History Code Duration Value Status Description Data Source(s ) Smoking 11/21/2020 12:00:00 AM EDT Never Smoker completed Never S moker eCW1 ([facility]) Smoking 11/21/2020 12:00:00 AM EDT Never Smoker completed Never S moker eCW1 ([facility]) Smoking 11/21/2020 12:00:00 AM EDT Never Smoker completed Never S moker eCW1 ([facility]) Smoking 11/21/2020 12:00:00 AM EDT Never Smoker completed Never S moker eCW1 ([facility]) Smoking 11/21/2020 12:00:00 AM EDT Never Smoker completed Never S moker eCW1 ([facility]) Smoking 08/19/2020 12:00:00 AM EST Never Smoker completed Never S moker eCW1 ([facility]) Smoking 08/19/2020 12:00:00 AM EST Never Smoker completed Never S moker eCW1 ([facility]) Smoking 08/19/2020 12:00:00 AM EST Never Smoker completed Never S moker eCW1 ([facility]) Smoking 08/19/2020 12:00:00 AM EST Never Smoker completed Never S moker eCW1 ([facility]) Smoking 08/19/2020 12:00:00 AM EST Never Smoker completed Never S moker eCW1 ([facility]) Smoking 08/19/2020 12:00:00 AM EST Never Smoker completed Never S moker eCW1 ([facility]) Smoking 08/19/2020 12:00:00 AM EST Never Smoker completed Never S moker eCW1 ([facility]) Smoking 07/23/2020 12:00:00 AM EST Never Smoker completed Never S moker eCW1 ([facility]) Smoking 07/23/2020 12:00:00 AM EST Never Smoker completed Never S moker eCW1 ([facility]) Vital Signs ID Date Data Source UNK Name Value Range Interpretation Code Description Data Source(s) Systolic blood pressure 124 mm[Hg] 124 mm[Hg] M EDENT ([facility]) Diastolic blood pressure 70 mm[Hg] 70 mm[Hg] MEDENT ([facility]) Body weight 136.00 [lb_av] 136.00 [lb_av] MEDEN T ([facility]) Respiratory rate 18 /min 18 /min MEDENT ( [facility]) Body weight 136.00 [lb_av] 136.00 [lb_av] MEDEN T ([facility]) Respiratory rate 18 /min 18 /min MEDENT ( [facility]) Body weight 142.6 [lb_av] 142.6 [lb_av] eCW1 ([facility]) Body weight 64.7 kg 64.7 kg eCW1 ([facility]) Body height 60 [in_i] 60 [in_i] eCW1 ([facility]) Body mass index (BMI) [Ratio] 27.85 kg/m2 27.85 kg/m2 eCW1 ([facility]) Heart rate 85 /min 85 /min eCW1 ([facility]) Respiratory rate 18 /min 18 /min eCW1 ([facility]) Body temperature 98.4 [degF] 98.4 [degF] eCW1 ( [facility]) Systolic blood pressure 106 mm[Hg] 106 mm[Hg] e CW1 ([facility]) Diastolic blood pressure 66 mm[Hg] 66 mm[Hg] eCW1 ([facility]) Systolic blood pressure 122 mm[Hg] 122 mm[Hg] M EDENT ([facility]) Diastolic blood pressure 66 mm[Hg] 66 mm[Hg] MEDENT ([facility]) Body weight 140.00 [lb_av] 140.00 [lb_av] MEDEN T ([facility]) Respiratory rate 18 /min 18 /min MEDENT ( [facility]) Systolic blood pressure 120 mm[Hg] 120 mm[Hg] M EDENT ([facility] ) Diastolic blood pressure 80 mm[Hg] 80 mm[Hg] MEDENT ([facility] ) Heart rate 72 /min 72 /min MEDENT ([facility] ) Body height 60 [in_i] 60 [in_i] MEDENT ([facility] ) 5'0" Body weight 140.00 [lb_av] 140.00 [lb_av] MEDEN T ([facility] ) Body mass index (BMI) [Ratio] 27.3 kg/m2 27.3 k g/m2 MEDENT ([facility] ) [place] body weight 100 [lb_av] 100 [lb_av] MEDEN T ([facility] ) Body weight 139.8 [lb_av] 139.8 [lb_av] eCW1 ([facility]) Body weight 63.4 kg 63.4 kg eCW1 ([facility]) Body height 60 [in_i] 60 [in_i] eCW1 ([facility]) Body mass index (BMI) [Ratio] 27.30 kg/m2 27.30 kg/m2 eCW1 ([facility]) Heart rate 85 /min 85 /min eCW1 ([facility]) Respiratory rate 18 /min 18 /min eCW1 ([facility]) Body temperature 97.8 [degF] 97.8 [degF] eCW1 ( [facility]) Systolic blood pressure 108 mm[Hg] 108 mm[Hg] e CW1 ([facility]) Diastolic blood pressure 68 mm[Hg] 68 mm[Hg] eCW1 ([facility]) Body weight 143 [lb_av] 143 [lb_av] eCW1 ([facility]) Body weight 64.8 kg 64.8 kg eCW1 ([facility]) Body height 60 [in_i] 60 [in_i] eCW1 ([facility]) Body mass index (BMI) [Ratio] 27.92 kg/m2 27.92 kg/m2 eCW1 ([facility]) Heart rate 103 /min 103 /min eCW1 ([facility]) Body temperature 98.1 [degF] 98.1 [degF] eCW1 ( [facility]) Systolic blood pressure 100 mm[Hg] 100 mm[Hg] e CW1 ([facility]) Diastolic blood pressure 62 mm[Hg] 62 mm[Hg] eCW1 ([facility]) Patient Treatment Plan of Care Planned Activity Planned Date Details Description Data Source (s) Naproxen 500 MG Oral Tablet 11/21/2020 12:00:00 AM EDT eCW1 ([facility]) Naproxen 500 MG Oral Tablet 11/21/2020 12:00:00 AM EDT eCW1 ([facility]) Naproxen 500 MG Oral Tablet 11/21/2020 12:00:00 AM EDT eCW1 ([facility]) Naproxen 500 MG Oral Tablet 11/21/2020 12:00:00 AM EDT eCW1 ([facility]) Naproxen 500 MG Oral Tablet 11/21/2020 12:00:00 AM EDT eCW1 ([facility]) Hydroxychloroquine Sulfate 200 MG Oral Tablet [[place]] 09/21/2020 12:00:00 AM EDT eCW1 ([facility]) Hydroxychloroquine Sulfate 200 MG Oral Tablet [[place]] 09/21/2020 12:00:00 AM EDT eCW1 ([facility]) Hydroxychloroquine Sulfate 200 MG Oral Tablet [[place]] 09/21/2020 12:00:00 AM EDT eCW1 ([facility]) Hydroxychloroquine Sulfate 200 MG Oral Tablet [[place]] 09/21/2020 12:00:00 AM EDT eCW1 ([facility]) Hydroxychloroquine Sulfate 200 MG Oral Tablet [[place]] 09/21/2020 12:00:00 AM EDT eCW1 ([facility]) Hydroxychloroquine Sulfate 200 MG Oral Tablet [[place]] 09/21/2020 12:00:00 AM EDT eCW1 ([facility]) Hydroxychloroquine Sulfate 200 MG Oral Tablet [[place]] 09/21/2020 12:00:00 AM EDT eCW1 ([facility]) Hydroxychloroquine Sulfate 200 MG Oral Tablet [[place]] 09/21/2020 12:00:00 AM EDT eCW1 ([facility]) Hydroxychloroquine Sulfate 200 MG Oral Tablet [[place]] 09/21/2020 12:00:00 AM EDT eCW1 ([facility]) D3 Vitamin 199908/19/2020 12:00:00 AM EST eCW1 ([facility]) meloxicam 7.5 MG Oral Tablet 08/19/2020 12:00:00 AM EST eCW1 ([facility]) Folic Acid 1 MG Oral Tablet 08/19/2020 12:00:00 AM EST eCW1 ([facility]) D3 Vitamin 199908/19/2020 12:00:00 AM EST eCW1 ([facility]) meloxicam 7.5 MG Oral Tablet 08/19/2020 12:00:00 AM EST eCW1 ([facility]) Folic Acid 1 MG Oral Tablet 08/19/2020 12:00:00 AM EST eCW1 ([facility]) D3 Vitamin 199908/19/2020 12:00:00 AM EST eCW1 ([facility]) meloxicam 7.5 MG Oral Tablet 08/19/2020 12:00:00 AM EST eCW1 ([facility]) Folic Acid 1 MG Oral Tablet 08/19/2020 12:00:00 AM EST eCW1 ([facility]) D3 Vitamin 199908/19/2020 12:00:00 AM EST eCW1 ([facility]) meloxicam 7.5 MG Oral Tablet 08/19/2020 12:00:00 AM EST eCW1 ([facility]) Folic Acid 1 MG Oral Tablet 08/19/2020 12:00:00 AM EST eCW1 ([facility]) meloxicam 7.5 MG Oral Tablet 08/19/2020 12:00:00 AM EST eCW1 ([facility]) D3 Vitamin 199908/19/2020 12:00:00 AM EST eCW1 ([facility]) Folic Acid 1 MG Oral Tablet 08/19/2020 12:00:00 AM EST eCW1 ([facility]) meloxicam 7.5 MG Oral Tablet 08/19/2020 12:00:00 AM EST eCW1 ([facility]) D3 Vitamin 199908/19/2020 12:00:00 AM EST eCW1 ([facility]) Folic Acid 1 MG Oral Tablet 08/19/2020 12:00:00 AM EST eCW1 ([facility]) meloxicam 7.5 MG Oral Tablet 08/19/2020 12:00:00 AM EST eCW1 ([facility]) D3 Vitamin 199908/19/2020 12:00:00 AM EST eCW1 ([facility]) Folic Acid 1 MG Oral Tablet 08/19/2020 12:00:00 AM EST eCW1 ([facility]) Ergocalciferol 91050 UNT Oral Capsule 07/27/2020 12:00:00 AM EST eCW1 ([facility]) Ergocalciferol 39302 UNT Oral Capsule 07/27/2020 12:00:00 AM EST eCW1 ([facility]) Ergocalciferol 15159 UNT Oral Capsule 07/27/2020 12:00:00 AM EST eCW1 ([facility]) Ergocalciferol 07513 UNT Oral Capsule 07/27/2020 12:00:00 AM EST eCW1 ([facility])
--- NOTE | 2021-04-09 13:42 | ECGEPIP ---
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
--- NOTE | 2021-04-09 15:12 | REP ---
INDICATION: chest discomfort COMPARISON: None. TECHNIQUE: PA/Lateral FINDINGS: Lungs: Clear, no infiltrate. Heart: Normal in size. Mediastinum: Mediastinal silhouette unremarkable. Pleural angles: Unremarkable.. Bones and soft tissues: Unremarkable. IMPRESSION: No acute pulmonary disease. <Electronically signed by Vic James > 04/09/21 [id number]
[2021-04-09 15:34] VITALS: BP 103/60
== END 2021-04-09 16:22 | disposition home or self-care (01) ==
LOC: M ED 11:10
DX: R00.2 Palpitations (principal)

== ENCOUNTER → 2021-10-07 | Outpatient (REF) | payer OTHER ==
[~2021-10-07] MED LIST changes: +CHOL50003 PO; +SULF1TAB30 PO
[2021-10-07 12:20] LABS: BASO % 0.6 % (0.0-1.0); EOS # 0.1 10^3/uL (0.0-0.5); HEMATOCRIT 39.9 % (36.0-47.0); HEMOGLOBIN 13.3 g/dl (12.0-15.5); LYMPH # 2.4 10^3/uL (1.5-5.0); LYMPH % 36.5 % (24.0-44.0); MEAN CORPUSCULAR HEMOGLOBIN 30.8 pg (27.0-33.0); MEAN CORPUSCULAR HGB CONC 33.3 g/dl (32.0-36.5); MEAN CORPUSCULAR VOLUME 92.4 fl (80.0-96.0); MONO # 0.4 10^3/uL (0.0-0.8); MONO % 5.9 % (2.0-8.0); NEUTROPHILS # 3.6 10^3/uL (1.5-8.5); NEUTROPHILS % 54.8 % (36.0-66.0); PLATELET COUNT, AUTOMATED 273 10^3/uL (150-450); RED BLOOD COUNT 4.32 10^6/uL (4.00-5.40); WHITE BLOOD COUNT 6.6 10^3/uL (4.0-10.0)
[2021-10-07 12:43] LABS: ERYTHROCYTE SEDIMENTATION RATE 30 mm/hr (0-20)
[2021-10-07 12:46] LABS: ALBUMIN 3.5 GM/DL (3.2-5.2); ALT/SGPT 38 U/L (12-78); BILIRUBIN,DIRECT < 0.1 MG/DL (0.0-0.2); BILIRUBIN,TOTAL 0.3 MG/DL (0.2-1.0); BLOOD UREA NITROGEN 15 MG/DL (7-18); C REACTIVE PROTEIN QUANTITATIV 1.25 MG/DL (0.00-0.30); CARBON DIOXIDE LEVEL 31 MEQ/L (21-32); CHLORIDE LEVEL 105 MEQ/L (98-107); CREATININE FOR GFR 0.57 MG/DL (0.55-1.30); GLOMERULAR FILTRATION RATE > 60.0 (>60); GLUCOSE, FASTING 80 MG/DL (70-100); POTASSIUM SERUM 4.1 MEQ/L (3.5-5.1); SODIUM LEVEL 138 MEQ/L (136-145)
== END ==
LOC: M SFHCRHEU 07:34
PROVIDERS: ATTEND Internal Medicine
DX: M32.9 Systemic lupus erythematosus, unspecified (principal)

== ENCOUNTER → 2021-11-05 | Outpatient (REF) | payer OTHER ==
[2021-11-05 17:00] LABS: BASO % 0.6 % (0.0-1.0); EOS # 0.3 10^3/uL (0.0-0.5); EOS % 3.5 % (0.0-3.0); HEMATOCRIT 39.4 % (36.0-47.0); LYMPH # 1.6 10^3/uL (1.5-5.0); LYMPH % 22.7 % (24.0-44.0); MEAN CORPUSCULAR HEMOGLOBIN 30.4 pg (27.0-33.0); MEAN CORPUSCULAR VOLUME 92.3 fl (80.0-96.0); MONO # 0.5 10^3/uL (0.0-0.8); MONO % 7.1 % (2.0-8.0); NEUTROPHILS # 4.8 10^3/uL (1.5-8.5); NEUTROPHILS % 65.7 % (36.0-66.0); PLATELET COUNT, AUTOMATED 268 10^3/uL (150-450); RED BLOOD COUNT 4.27 10^6/uL (4.00-5.40); WHITE BLOOD COUNT 7.2 10^3/uL (4.0-10.0)
[2021-11-05 17:21] LABS: ALBUMIN 4.1 GM/DL (3.2-5.2); ALT/SGPT 21 U/L (12-78); BILIRUBIN,DIRECT 0.1 MG/DL (0.0-0.2); BILIRUBIN,TOTAL 0.4 MG/DL (0.2-1.0); BLOOD UREA NITROGEN 14 MG/DL (7-18); C REACTIVE PROTEIN QUANTITATIV 0.73 MG/DL (0.00-0.30); CALCIUM LEVEL 9.5 MG/DL (8.5-10.1); CARBON DIOXIDE LEVEL 30 MEQ/L (21-32); CHLORIDE LEVEL 104 MEQ/L (98-107); CREATININE FOR GFR 0.68 MG/DL (0.55-1.30); GLOMERULAR FILTRATION RATE > 60.0 (>60); GLUCOSE, FASTING 84 MG/DL (70-100); SODIUM LEVEL 138 MEQ/L (136-145)
[2021-11-05 18:49] LABS: ERYTHROCYTE SEDIMENTATION RATE 9 mm/hr (0-20)
== END ==
LOC: M SFHCRHEU 12:30
PROVIDERS: ATTEND Internal Medicine
DX: M32.9 Systemic lupus erythematosus, unspecified (principal)

== ENCOUNTER → 2021-12-04 | Outpatient (REF) | payer OTHER ==
[2021-12-04 12:48] LABS: BASO # 0.1 10^3/uL (0.0-0.2); BASO % 0.8 % (0.0-1.0); EOS # 0.2 10^3/uL (0.0-0.5); EOS % 2.4 % (0.0-3.0); HEMATOCRIT 40.4 % (36.0-47.0); HEMOGLOBIN 13.4 g/dl (12.0-15.5); LYMPH # 1.8 10^3/uL (1.5-5.0); LYMPH % 26.8 % (24.0-44.0); MEAN CORPUSCULAR HEMOGLOBIN 30.8 pg (27.0-33.0); MEAN CORPUSCULAR HGB CONC 33.2 g/dl (32.0-36.5); MEAN CORPUSCULAR VOLUME 92.9 fl (80.0-96.0); MONO # 0.5 10^3/uL (0.0-0.8); MONO % 7.2 % (2.0-8.0); NEUTROPHILS # 4.2 10^3/uL (1.5-8.5); NEUTROPHILS % 62.6 % (36.0-66.0); PLATELET COUNT, AUTOMATED 303 10^3/uL (150-450); RED BLOOD COUNT 4.35 10^6/uL (4.00-5.40); WHITE BLOOD COUNT 6.7 10^3/uL (4.0-10.0)
[2021-12-04 13:12] LABS: ALBUMIN 3.9 GM/DL (3.2-5.2); ALT/SGPT 22 U/L (12-78); BILIRUBIN,DIRECT < 0.1 MG/DL (0.0-0.2); BILIRUBIN,TOTAL 0.3 MG/DL (0.2-1.0); BLOOD UREA NITROGEN 17 MG/DL (7-18); CALCIUM LEVEL 10.1 MG/DL (8.5-10.1); CARBON DIOXIDE LEVEL 28 MEQ/L (21-32); CHLORIDE LEVEL 105 MEQ/L (98-107); CREATININE FOR GFR 0.63 MG/DL (0.55-1.30); GLOMERULAR FILTRATION RATE > 60.0 (>60); GLUCOSE, FASTING 91 MG/DL (70-100); POTASSIUM SERUM 4.5 MEQ/L (3.5-5.1); SODIUM LEVEL 139 MEQ/L (136-145)
[2021-12-04 13:24] LABS: ERYTHROCYTE SEDIMENTATION RATE 6 mm/hr (0-20)
== END ==
LOC: M SFHCRHEU 07:42
PROVIDERS: ATTEND Internal Medicine
DX: M32.9 Systemic lupus erythematosus, unspecified (principal)

== ENCOUNTER → 2022-03-10 | Outpatient (REF) | payer OTHER ==
[2022-03-10 16:54] LABS: APPEARANCE, URINE MANUAL CLEAR (CLEAR); COLOR, URINE MANUAL YELLOW (YELLOW)
[2022-03-10 16:55] LABS: BILIRUBIN, URINE MANUAL NEGATIVE (NEGATIVE); BLOOD URINE MANUAL NEGATIVE (NEGATIVE); GLUCOSE, URINE (UA) MANUAL NEGATIVE (NEGATIVE); KETONE, URINE MANUAL NEGATIVE (NEGATIVE); LEUKOCYTE ESTERASE, URINE MAN NEGATIVE (NEGATIVE); NITRITE, URINE MANUAL NEGATIVE (NEGATIVE); PROTEIN, URINE MANUAL NEGATIVE (NEGATIVE); SPECIFIC GRAVITY,URINE MANUAL 1.015 (1.002-1.035); UROBILINOGEN, URINE MANUAL NORMAL (NORMAL)
[2022-03-10 16:56] LABS: BASO # 0.1 10^3/uL (0.0-0.2); BASO % 0.9 % (0.0-1.0); EOS # 0.2 10^3/uL (0.0-0.5); EOS % 3.3 % (0.0-3.0); HEMATOCRIT 38.3 % (36.0-47.0); HEMOGLOBIN 12.9 g/dl (12.0-15.5); LYMPH # 1.7 10^3/uL (1.5-5.0); LYMPH % 29.2 % (24.0-44.0); MEAN CORPUSCULAR HEMOGLOBIN 29.9 pg (27.0-33.0); MEAN CORPUSCULAR HGB CONC 33.7 g/dl (32.0-36.5); MEAN CORPUSCULAR VOLUME 88.9 fl (80.0-96.0); MONO # 0.4 10^3/uL (0.0-0.8); MONO % 7.5 % (2.0-8.0); NEUTROPHILS # 3.4 10^3/uL (1.5-8.5); NEUTROPHILS % 58.9 % (36.0-66.0); PLATELET COUNT, AUTOMATED 309 10^3/uL (150-450); RED BLOOD COUNT 4.31 10^6/uL (4.00-5.40); WHITE BLOOD COUNT 5.8 10^3/uL (4.0-10.0)
[2022-03-10 17:26] LABS: ALBUMIN 3.9 GM/DL (3.2-5.2); ALT/SGPT 25 U/L (12-78); BILIRUBIN,DIRECT 0.1 MG/DL (0.0-0.2); BILIRUBIN,TOTAL 0.6 MG/DL (0.2-1.0); BLOOD UREA NITROGEN 14 MG/DL (7-18); C REACTIVE PROTEIN QUANTITATIV 0.39 MG/DL (0.00-0.30); CALCIUM LEVEL 9.4 MG/DL (8.5-10.1); CARBON DIOXIDE LEVEL 31 MEQ/L (21-32); CHLORIDE LEVEL 104 MEQ/L (98-107); COMPLEMENT C3 105 MG/DL (90-180); COMPLEMENT C4 35 MG/DL (10-40); CREATININE FOR GFR 0.91 MG/DL (0.55-1.30); GLOMERULAR FILTRATION RATE > 60.0 (>60); GLUCOSE, FASTING 101 MG/DL (70-100); POTASSIUM SERUM 4.3 MEQ/L (3.5-5.1); SODIUM LEVEL 138 MEQ/L (136-145)
[2022-03-10 17:30] LABS: CREATININE,RANDOM URINE 92.2 MG/DL; TOTAL PROTEIN,RANDOM URINE 6.7 MG/DL (0.0-12.0)
[2022-03-10 17:51] LABS: ERYTHROCYTE SEDIMENTATION RATE 8 mm/hr (0-20)
[2022-03-10 18:52] LABS: TOTAL 25(OH) VITAMIN D 40.7 NG/ML (30.0-100.0)
[2022-03-18 13:07] LABS: ANTI DS-DNA AB Negative (Negative); COMPLEMENT TOTAL (CH50) > 60 U/mL (>41)
== END ==
LOC: M SFHCRHEU 12:04
PROVIDERS: ATTEND Internal Medicine
DX: M32.9 Systemic lupus erythematosus, unspecified (principal); E55.9 Vitamin D deficiency, unspecified
CPT/HCPCS: 36415; 80048; 80076; 80220; 81002; 82306; 82570; 82657; 84156; 85025; 85652; 86140; 86160; 86162; 86225; G0463

== ENCOUNTER → 2022-05-26 | Outpatient (REF) | payer OTHER | LOC: M SFHCRHEU 12:38 | PROVIDERS: ATTEND Internal Medicine | DX: M32.9 Systemic lupus erythematosus, unspecified (principal); Z53.9 Procedure and treatment not carried out, unspecified reason ==

== ENCOUNTER → 2022-05-27 | Outpatient (REF) | payer OTHER ==
[2022-05-27 16:38] LABS: BASO % 0.5 % (0.0-1.0); EOS # 0.2 10^3/uL (0.0-0.5); EOS % 2.3 % (0.0-3.0); HEMATOCRIT 39.5 % (36.0-47.0); HEMOGLOBIN 13.3 g/dl (12.0-15.5); LYMPH % 30.6 % (24.0-44.0); MEAN CORPUSCULAR HEMOGLOBIN 29.8 pg (27.0-33.0); MEAN CORPUSCULAR HGB CONC 33.7 g/dl (32.0-36.5); MEAN CORPUSCULAR VOLUME 88.4 fl (80.0-96.0); MONO # 0.5 10^3/uL (0.0-0.8); MONO % 7.3 % (2.0-8.0); NEUTROPHILS # 3.8 10^3/uL (1.5-8.5); PLATELET COUNT, AUTOMATED 281 10^3/uL (150-450); RED BLOOD COUNT 4.47 10^6/uL (4.00-5.40); WHITE BLOOD COUNT 6.5 10^3/uL (4.0-10.0)
[2022-05-27 17:13] LABS: ERYTHROCYTE SEDIMENTATION RATE 9 mm/hr (0-20)
[2022-05-27 17:59] LABS: ALBUMIN 4.4 G/DL (3.2-5.2); ALKALINE PHOSPHATASE 83 U/L (46-116); ALT/SGPT 19 U/L (7.0-40); AST/SGOT 22 U/L (<34); BILIRUBIN,DIRECT 0.1 MG/DL (<0.4); BILIRUBIN,TOTAL 0.4 MG/DL (0.3-1.2); BLOOD UREA NITROGEN 19 MG/DL (9-23); CALCIUM LEVEL 9.5 MG/DL (8.5-10.1); CARBON DIOXIDE LEVEL 25 MMOL/L (20-31); CHLORIDE LEVEL 105 MMOL/L (98-107); CREATININE FOR GFR 0.64 MG/DL (0.55-1.30); GLOMERULAR FILTRATION RATE > 60.0 (>60); GLUCOSE, FASTING 86 MG/DL (60-100); SODIUM LEVEL 139 MMOL/L (136-145)
== END ==
LOC: M SFHCRHEU 14:55
PROVIDERS: ATTEND Internal Medicine
DX: M32.9 Systemic lupus erythematosus, unspecified (principal)

== ENCOUNTER → 2022-05-29 | Outpatient (REF) | payer OTHER ==
[2022-05-29 18:57] LABS: HEPATITIS B SURFACE ANTIBODY NEGATIVE (POSITIVE)
[2022-05-29 19:11] LABS: HEPATITIS B SURFACE ANTIGEN NEGATIVE (NEGATIVE)
[2022-05-29 19:31] LABS: HEPATITIS C VIRUS ABY INDEX 0.2 INDEX (<0.8)
== END ==
LOC: M SFHCRHEU 15:39
PROVIDERS: ATTEND Internal Medicine
DX: M32.9 Systemic lupus erythematosus, unspecified (principal); Z11.59 Encounter for screening for other viral diseases

== ENCOUNTER → 2022-08-13 | Outpatient (REF) | payer OTHER ==
[2022-08-13 16:36] LABS: C REACTIVE PROTEIN QUANTITATIV < 0.40 MG/DL (<1.0)
[2022-08-13 16:38] LABS: BASO # 0.1 10^3/uL (0.0-0.2); BASO % 0.9 % (0.0-1.0); EOS # 0.1 10^3/uL (0.0-0.5); HEMATOCRIT 39.9 % (36.0-47.0); HEMOGLOBIN 13.3 g/dl (12.0-15.5); LYMPH # 1.7 10^3/uL (1.5-5.0); LYMPH % 24.3 % (24.0-44.0); MEAN CORPUSCULAR HEMOGLOBIN 30.4 pg (27.0-33.0); MEAN CORPUSCULAR HGB CONC 33.3 g/dl (32.0-36.5); MEAN CORPUSCULAR VOLUME 91.3 fl (80.0-96.0); MONO # 0.5 10^3/uL (0.0-0.8); MONO % 7.4 % (2.0-8.0); NEUTROPHILS # 4.6 10^3/uL (1.5-8.5); NEUTROPHILS % 65.1 % (36.0-66.0); PLATELET COUNT, AUTOMATED 289 10^3/uL (150-450); RED BLOOD COUNT 4.37 10^6/uL (4.00-5.40)
[2022-08-13 16:41] LABS: ALBUMIN 4.3 G/DL (3.2-5.2); ALKALINE PHOSPHATASE 83 U/L (46-116); ALT/SGPT 19 U/L (7.0-40); AST/SGOT 18 U/L (<34); BILIRUBIN,DIRECT 0.1 MG/DL (<0.4); BILIRUBIN,TOTAL 0.5 MG/DL (0.3-1.2); BLOOD UREA NITROGEN 16 MG/DL (9-23); CALCIUM LEVEL 9.6 MG/DL (8.5-10.1); CARBON DIOXIDE LEVEL 28 MMOL/L (20-31); CHLORIDE LEVEL 104 MMOL/L (98-107); CREATININE FOR GFR 0.58 MG/DL (0.55-1.30); GLOMERULAR FILTRATION RATE > 60.0 (>60); GLUCOSE, FASTING 93 MG/DL (60-100); SODIUM LEVEL 139 MMOL/L (136-145); TOTAL PROTEIN 7.3 G/DL (5.7-8.2)
[2022-08-13 16:56] LABS: ERYTHROCYTE SEDIMENTATION RATE 15 mm/hr (0-20)
== END ==
LOC: M SFHCRHEU 14:41
PROVIDERS: ATTEND Internal Medicine
DX: M32.9 Systemic lupus erythematosus, unspecified (principal)

== ENCOUNTER → 2022-10-30 | Outpatient (REF) | payer OTHER ==
[2022-10-30 16:44] LABS: TOTAL PROTEIN,RANDOM URINE 6.8 MG/DL (0.0-14.0)
[2022-10-30 16:46] LABS: APPEARANCE, URINE CLEAR (CLEAR); BACTERIA, URINE AUTO NEGATIVE (NEGATIVE); BILIRUBIN, URINE AUTO NEGATIVE (NEGATIVE); BLOOD, URINE BLOOD NEGATIVE (NEGATIVE); COLOR, URINE STRAW (YELLOW); GLUCOSE, URINE (UA) AUTO NEGATIVE (NEGATIVE); KETONE, URINE AUTO NEGATIVE (NEGATIVE); LEUKOCYTE ESTERASE, URINE AUTO NEGATIVE (NEGATIVE); NITRITE, URINE AUTO NEGATIVE (NEGATIVE); PROTEIN, URINE AUTO NEGATIVE (NEGATIVE); RBC, URINE AUTO 0 /HPF (0-3); SPECIFIC GRAVITY URINE AUTO 1.008 (1.002-1.035); SQUAMOUS EPITHELIAL CELL UR AU 0 /HPF (0-6); UROBILINOGEN, URINE AUTO 0.2 mg/dL (0.0-2.0); WBC, URINE AUTO 0 /HPF (0-3)
[2022-10-30 16:48] LABS: C REACTIVE PROTEIN QUANTITATIV < 0.40 MG/DL (<1.0)
[2022-10-30 16:49] LABS: COMPLEMENT C4 38.4 MG/DL (12-36); CREATININE,RANDOM URINE 30.9 MG/DL
[2022-10-30 16:50] LABS: ALBUMIN 4.3 G/DL (3.2-5.2); ALKALINE PHOSPHATASE 79 U/L (46-116); ALT/SGPT 21 U/L (7.0-40); AST/SGOT 20 U/L (<34); BILIRUBIN,DIRECT 0.2 MG/DL (<0.4); BILIRUBIN,TOTAL 0.7 MG/DL (0.3-1.2); BLOOD UREA NITROGEN 19 MG/DL (9-23); CALCIUM LEVEL 8.8 MG/DL (8.5-10.1); CARBON DIOXIDE LEVEL 29 MMOL/L (20-31); CHLORIDE LEVEL 103 MMOL/L (98-107); CREATININE FOR GFR 0.64 MG/DL (0.55-1.30); GLOMERULAR FILTRATION RATE > 60.0 (>60); GLUCOSE, FASTING 89 MG/DL (60-100); POTASSIUM SERUM 3.7 MMOL/L (3.5-5.1); SODIUM LEVEL 139 MMOL/L (136-145); TOTAL PROTEIN 6.7 G/DL (5.7-8.2)
[2022-10-30 16:52] LABS: TOTAL 25(OH) VITAMIN D 38.4 NG/ML (20.0-100.0)
== END ==
LOC: M SFHCRHEU 12:39
PROVIDERS: ATTEND Internal Medicine
DX: M32.9 Systemic lupus erythematosus, unspecified (principal); E55.9 Vitamin D deficiency, unspecified; Z79.899 Other long term (current) drug therapy

== ENCOUNTER → 2022-11-09 | Outpatient (REF) | payer OTHER ==
[2022-11-09 12:47] LABS: BASO # 0.1 10^3/uL (0.0-0.2); BASO % 0.6 % (0.0-1.0); EOS # 0.2 10^3/uL (0.0-0.5); EOS % 2.9 % (0.0-3.0); HEMATOCRIT 39.9 % (36.0-47.0); HEMOGLOBIN 12.9 g/dl (12.0-15.5); LYMPH # 1.8 10^3/uL (1.5-5.0); LYMPH % 22.9 % (24.0-44.0); MEAN CORPUSCULAR HEMOGLOBIN 30.2 pg (27.0-33.0); MEAN CORPUSCULAR HGB CONC 32.3 g/dl (32.0-36.5); MEAN CORPUSCULAR VOLUME 93.4 fl (80.0-96.0); MONO # 0.7 10^3/uL (0.0-0.8); MONO % 8.2 % (2.0-8.0); NEUTROPHILS # 5.2 10^3/uL (1.5-8.5); PLATELET COUNT, AUTOMATED 270 10^3/uL (150-450); RED BLOOD COUNT 4.27 10^6/uL (4.00-5.40)
== END ==
LOC: M SFHCRHEU 08:04
PROVIDERS: ATTEND Internal Medicine
DX: M32.9 Systemic lupus erythematosus, unspecified (principal)